=== PATIENT | male | born 1940 | race Caucasian/White ===

== ENCOUNTER 2023-12-19 21:16 | Inpatient (IN) | payer MEDICARE, OTHER, SELFPAY ==
--- NOTE | 2023-12-19 17:15 | HPS.HSE ---
Family Physician
-
Family Physician: Ernesto Infante
Chief Complaint
-
Abdominal, Parastomal Hernia
History of Present Illness
Patient is an 83 y/o male past medical history of ESRD on HD, diabetes mellitus, a-fib on anticoagulation, right hydronephrosis with right percutaneous nephrostomy and ulcerative colitis s/p colectomy with ileostomy who presents with abdominal pain.
Patient presented to an outside hospital with abdominal pain and was diagnosed with a small bowel obstruction. Concern was raised for possible symptomatic peristomal hernia. Patient is known to Dr. Maravilla and thus was transferred to [facility] for continued care. Patient reports mild abdominal pain at the present time. Prior to transfer he was given 4oz of orange juice for hypoglycemia that resulted in vomiting. He reports only small amount of green liquid from his ileostomy
bag today.
Medical History
Past Medical History
Past Medical History: Reports Other
Additional Past Medical History:
ESRD on HD
Diabetes Mellitus, Type II
Paroxysmal Atrial Fibrillation
Essential Hypertension
Orthostatic Hypotension
Right Hydronephrosis s/p Right Percutaneous Nephrostomy
Ulcerative Colitis s/p Colectomy with Ileostomy
Parastomal Hernia
BPH
Gout
Past Surgical History: Reports Other
Additional Past Surgical History:
Colectomy with Ileostomy
Right Percutaneous Nephrostomy
Right Inguinal Hernia Repair
Tonsillectomy
Social History
Tobacco: Former Smoker (Quit in 1984)
Family History
Family History: Not pertinent
Allergies / Home Medications
Allergies reflects when Allergies were last updated in [employer].
Home Medications with original date entered in [employer]
Allergy/Medication List:
Allergies
Allergy/AdvReac Type Severity Reaction Status Date / Time
vancomycin Allergy Hives Verified 12/19/23 16:34
Home Medications
acetaminophen 500 mg tablet 1,000 mg PO Q6H PRN mild pain/fever 12/19/23
allopurinol 100 mg tablet 100 mg PO BID 12/19/23
amiodarone 200 mg tablet 200 mg PO DAILY 12/19/23
apixaban 2.5 mg tablet (Eliquis) 2.5 mg PO BID 12/19/23
atorvastatin 40 mg tablet 40 mg PO HS 12/19/23
cholecalciferol (vitamin D3) 50 mcg (2,000 unit) capsule (Vitamin D3) 50 mcg PO DAILY 12/19/23
clindamycin HCl 150 mg capsule 150 mg PO BID 12/19/23
coenzyme Q10 100 mg capsule 100 mg PO DAILY 12/19/23
insulin aspart U-100 100 unit/mL (3 mL) subcutaneous pen 14 unit SC 12/19/23
insulin aspart U-100 100 unit/mL (3 mL) subcutaneous pen 18 unit SC 12/19/23
insulin degludec 100 unit/mL (3 mL) subcutaneous pen (Tresiba FlexTouch U-100 insulin) 36 unit SC 12/19/23
losartan 25 mg tablet 25 mg PO DAILY 12/19/23
metoprolol tartrate 50 mg tablet 50 mg PO TID 12/19/23
midodrine 10 mg tablet 20 mg PO TID 12/19/23
sucroferric oxyhydroxide 500 mg chewable tablet (Velphoro) 1,000 mg PO BID 12/19/23
tamsulosin 0.4 mg capsule 0.4 mg PO HS 12/19/23
tramadol 50 mg tablet 50 mg PO Q6H PRN moderate/severe 12/19/23
trazodone 50 mg tablet 50 mg PO HS 12/19/23
Review of Systems
-
A 12 point ROS was completed and negative except as noted: Yes
Constitutional: Denies Fever or Chills
Respiratory: Denies Cough or Trouble Breathing
Cardiac: Denies Chest Pain or Palpitations
Abdomen/GI: Reports See HPI
Physical Exam
Vital Signs
Temp 99.3F
Pulse 69
BP 114/58
Resp Rate 22
Pulse Ox 94%
Physical Exam
General: Comfortable and Conversant
HEENT: Anicteric and Moist mucous membranes
Respiratory: Clear and Non Labored Respirations
Cardiac: S1/S2 and Regular Rhythm
GI: Soft, Tender (Mild on the right without rebound or gurading) and Ostomy (RLQ Ileostomy)
Genito-urinary: Other (Right Percutaneous Nephrostomy with very cloudy urine present in bag)
Musculoskeletal: No Clubbing, No Cyanosis, Edema, Right Upper Extremity and Other (Left UE AV Fistula with dressing in place following HD today)
Skin: Warm and Dry
Neuro: Awake, Alert, Oriented and Nonfocal/grossly intact
Laboratory Results
-
Labs from December 19, 2023 in AM prior to HD today
WBC 12.7
Hgb 11.8
Hct 36.4
Plt 241
Na 129
K 6.2
Cl 90
CO2 09
BUN 45
Cr 9.97
Glu 87
Data Reviewed
-
CT Scan: Report Reviewed by me
Lab Data: Labs Reviewed by me
Old Records: Reviewed
Impression/Plan
-
Small Bowel Obstruction, possible symptomatic peristomal hernia
-Consult General Surgery
-Continue NPO/IVFs
-Check Abd/Pelvis CT scan
Right Hydronephrosis s/p Right Percutaneous Nephrostomy
-Questionable urinary tract infection
-Started on Zosyn at outside side - Will continue for now
ESRD on HD
-Consult Nephrology
-Monitor Is&Os and Daily Weights
Hyperphosphatemia
-Check phosphorus level
-Continue phosphate binder
Diabetes Mellitus, Type II
-Decrease Lantus 10 units HS
-Monitor sugars and continue coverage insulin
Paroxysmal Atrial Fibrillation
-Eliquis on hold should patient require surgical intervention
-Continue amiodarone and metoprolol
Essential Hypertension
-Hold losartan due to hyperkalemia
-Continue metoprolol
Orthostatic Hypotension
-Currently on high dose midodrine - Will attempt to decrease dose with stopped losartan
-Add THOMAS stockings
BPH
-Continue Flomax
DVT proph: SCDs
Code Status: Full Code
[2023-12-19 20:40] VITALS: BP 114/58; BMI 35.8
--- NOTE | 2023-12-19 20:40 | PTCARENOTE ---
Pt arrive to [facility] as a direct admit at 2039. Pt was on a stretcher and walked to the bed. Pt has a Right flank nephrostomy and a right ileostomy. Pt has a LUE fistula for HD. Pt AA&Ox3. Pt not c/o pain at this time. Bed locked and in lowest
position. Pt oriented to room and call boone. Care ongoing.
[2023-12-19 21:38] LABS: Glucose - Point of Care 94 mg/dl (70-99)
[2023-12-19] MEDS: NSS 1000 IV (21:40)
--- NOTE | 2023-12-19 22:10 | W.PN.UPDATE ---
Update Note
Progress Note Update
Patient seen in conjunction with SHIP PROPELLER FINISHER. I agree with findings on history and physical. I concur with the assessment and plan unless stated otherwise.
This is a 83-year-old male with past medical history of end-stage renal disease on hemodialysis Tuesday currently via a left upper extremity AV fistula/graft, history of bowel resection status post ileostomy/colostomy, history of
nephrolithiasis currently with a right nephrostomy tube, hypertension, insulin-dependent diabetes, paroxysmal atrial fibrillation on anticoagulation and amiodarone, orthostatic presenting to the emergency department at outside hospital with
abdominal pain and nausea and found to have suspected small bowel obstruction and a mina-stomal hernia.
He reports sudden onset of episode with nausea and some prior who he is but no particular vomiting unless he is attempting p.o. intake. He denied any fevers or chills. Patient is followed by urology and is status post nephrostomy tube for a
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 He still makes urine. He says he was started on antibiotics likely clindamycin p.o. twice daily by his urology for purulent drainage from the nephrostomy tube a few weeks ago. He has continued on the antibiotics
until admitted at the hospital. Patient was started on Zosyn while admitted at the outside hospital.
Patient reports that he usually has dialysis Tuesday and recently at [facility] left upper extremity AV graft/fistula which was successfully used on his last dialysis prior to transfer here.
Patient has been seen by Dr. Maravilla and was transferred to from outside hospital for continuation of care and surgical evaluation.
On arrival here the patient had a temp of 99.3, blood pressure was 114/60 with a pulse of 69. Within saturation was 95% on room air. I reviewed the initial labs on arrival here and it showed nothing acute. Patient apparently had dialysis Tuesday
prior to transfer.
A&P
1. Small bowel obstruction - CT w/IV contrast here shows small bowel obstruction at the level of the right-sided ileostomy, associated with a peristomal hernia. Patient is not vomiting and denies abdominal pain
- admit to telemetry
- npo with meds being held
- no ngt for now
- pain control and antiemetic
- monitor vitals, will hold iv fluids for now given HD patient
- hold anticoagulants
2. UTI - Pyonephritis, + u/a and h/o purulent drainage from right nephrostomy on outpatient abx per urology.
- continuing zosyn 2.25 q 8 hd dosing for now
- f/u urine culture and blood culture from outside hospital
- consider id consult prior to d/c depending on culture findings
3. pAFIB - currently well controlled
- holding AC
- rate control with metoprolol iv for now
- holding amio
4. DM II on basal bolus at home
- insuling sliding scale q6
- low dose lantus 10 hs, hold if npo
5. HTN - patient on losartan and high dose midodrine
- holding losartan
- hold midodrine and monitor, check orthostatics
6. ESRD - HD M/W/F last HD on tuesday, no indicatin for acute HD
- nephrology consult
- npo for now
DVT PPX - SCDs
Code Status - Full Code
[2023-12-19] MEDS: LANTUS 0.1 UNITS SC (23:05)
[2023-12-19 23:15] VITALS: BMI 35.8
[2023-12-19 23:34] VITALS: BP 138/64
[2023-12-20] VITALS (15 sets, daily range): BP systolic 88–130; BP diastolic 45–90; BMI 35.3
[2023-12-20] MEDS: ZOSYN 50 IV ×2 (00:09→13:07)
[2023-12-20] MEDS: LOPRESSOR 5 MG IV ×2 (00:10→12:26)
[2023-12-20 00:15] LABS: Glucose - Point of Care 94 mg/dl (70-99)
--- NOTE | 2023-12-20 05:24 | PTCARENOTE ---
Pt vomited small amount of bright green emesis. Pt reports feeling better after vomiting. PHOSPHATIC FERTILIZER SUPERVISOR notified. Will continue to monitor.
[2023-12-20] MEDS: LOPRESSOR IV ×2 (05:41→17:58)
[2023-12-20 05:44] LABS: Glucose - Point of Care 92 mg/dl (70-99)
[2023-12-20 07:05] LABS: INR 1.29; PT 15.9 Sec (11.4-14.6)
--- NOTE | 2023-12-20 07:09 | CON.GS ---
Consultation
-
Performing Provider: Renita
Reason for Consultation: Parastomal hernia with small bowel obstruction
Medical History
-
Chief Complaint: Abdominal pain, nausea vomiting
History of Present Illness:
Patient is an 83-year-old male known to myself after previous outpatient evaluation in May 2023 for a known parastomal hernia. He has undergone a diagnostic laparoscopy converted to laparotomy, subtotal colectomy with creation of permanent end
ileostomy at [facility] on 04/05/2023 for fulminant/severe ulcerative colitis. He has had progressive swelling on the right side of the abdominal wall adjacent to his end ileostomy. It has been increasing in size and there is
some associated prolapse. His ostomy is functioning regularly without any symptoms suggestive of intermittent obstruction so therefore we had elected to manage his ostomy conservatively with outpatient surgical surveillance.
Patient reports that over the past few months it has continued to progressively enlarged in size. He was still managing it well without significant pain or discomfort until this past Tuesday when after eating dinner he developed the acute onset of
abdominal pain followed by nausea vomiting and decreased ostomy output. He had not experienced this at any time in the past with his ostomy. This prompted evaluation of hospitalization at [facility] and he has been transferred here
for our surgical evaluation as patient is previously known to myself.
Reports continues with intermittent nausea but reports minimal abdominal pain. Ostomy with scant liquid output.
Past Medical History
Past Medical History: Other (GERD, ESRD on HD, BMI 35, BPH, insulin-dependent diabetes mellitus, MGUS, P A-fib, orthostatic hypotension, hyperlipidemia, history of bladder stones, history of ulcerative colitis)
Past Surgical History: Other (Right inguinal hernia repair, percutaneous nephrostomy tube, pilonidal cyst, total abdominal colectomy with end ileostomy)
Social History
Tobacco: Former Smoker
Alcohol: None
Personal:
Living: With Family
Employment: Employed
Family History
Family History: Reviewed & Not Pertinent
Allergies / Home Medications
Allergy/AdvReac Type Severity Reaction Status Date / Time
vancomycin Allergy Hives Verified 12/19/23 16:34
�Medication �Instructions �Recorded �Confirmed �Type
acetaminophen 500 mg tablet 1,000 mg PO Q6H PRN mild pain/fever 12/19/23 12/19/23 History
allopurinol 100 mg tablet 100 mg PO BID 12/19/23 12/19/23 History
amiodarone 200 mg tablet 200 mg PO DAILY 12/19/23 12/19/23 History
apixaban 2.5 mg tablet (Eliquis) 2.5 mg PO BID 12/19/23 12/19/23 History
atorvastatin 40 mg tablet 40 mg PO HS 12/19/23 12/19/23 History
cholecalciferol (vitamin D3) 50 50 mcg PO DAILY 12/19/23 12/19/23 History
mcg (2,000 unit) capsule (Vitamin
D3)
clindamycin HCl 150 mg capsule 150 mg PO BID 12/19/23 12/19/23 History
coenzyme Q10 100 mg capsule 100 mg PO DAILY 12/19/23 12/19/23 History
insulin aspart U-100 100 unit/mL 14 unit SC 12/19/23 12/19/23 History
(3 mL) subcutaneous pen
insulin aspart U-100 100 unit/mL 18 unit SC 12/19/23 12/19/23 History
(3 mL) subcutaneous pen
insulin degludec 100 unit/mL (3 36 unit SC 12/19/23 12/19/23 History
mL) subcutaneous pen (Tresiba
FlexTouch U-100 insulin)
losartan 25 mg tablet 25 mg PO DAILY 12/19/23 12/19/23 History
metoprolol tartrate 50 mg tablet 50 mg PO TID 12/19/23 12/19/23 History
midodrine 10 mg tablet 20 mg PO TID 12/19/23 12/19/23 History
sucroferric oxyhydroxide 500 mg 1,000 mg PO BID 12/19/23 12/19/23 History
chewable tablet (Velphoro)
tamsulosin 0.4 mg capsule 0.4 mg PO HS 12/19/23 12/19/23 History
tramadol 50 mg tablet 50 mg PO Q6H PRN moderate/severe 12/19/23 12/19/23 History
trazodone 50 mg tablet 50 mg PO HS 12/19/23 12/19/23 History
Review of Systems
-
History Source: Patient
All other systems: Negative unless noted
A 10 point review of systems was completed, and was negative except as per HPI.
Physical Exam
Vital Signs
Temp Pulse Resp BP Pulse Ox
99.0 F 67 22 99/52 92
12/20/23 03:19 12/20/23 05:41 12/20/23 03:19 12/20/23 05:41 12/20/23 03:19
12/19/23 12/20/23 12/21/23
06:59 06:59 06:59
Actual Weight 108.272 kg
Body Mass Index (BMI) 35.3
Physical Exam
General: Well Developed, Well Nourished, No Apparent Distress and Comfortable
HEENT: Moist Mucous Membranes
Respiratory: Non Labored Respirations
GI: Soft, Tender (Minimal tenderness on the a parastomal hernia site. No rebound, no rigidity, no guarding), Distended and Other (Right-sided end ileostomy with prolapse. Parastomal hernia bit firm. Incarcerated. No overlying skin changes.
Mucosa pink)
Neuro: AO x 3
Psych: Calm
Data Reviewed
-
CT Scan: Image Personally Visualized and interpreted, Report Reviewed by me, Discussed with Physician, Discussed with Nurse and Discussed with Patient
Assessment / Plan
-
Assessment/Plan: 83-year-old male with chronically incarcerated parastomal hernia presenting with an acute resultant high-grade small bowel obstruction. Transition point at the neck of the parastomal hernia. No radiographic nor clinical signs of
bowel compromise.
Discussed with patient indications for operative correction. Obstructive symptoms persist despite nonoperative management for the last 72 hours at outside hospital prior to transfer.
Open repair parastomal hernia with possible mesh, possible bowel resection was reviewed in detail with patient including anticipation of reciting at least a mucocutaneous junction of his end ileostomy.
We discussed the operative procedure in detail including potential operative findings and their management, anticipated incision location, alternative treatment options, benefits and risk such as but not limited to bleeding requiring transfusion,
infectious and wound related complications, iatrogenic injury to surrounding viscera, and postoperative recovery. Particularly discussed specifics regarding his increased medical risk for surgery which include his age, diabetes, end-stage renal
disease on dialysis. Utilizing [employer] ACS risk calculator specifically discussed 30-day estimated mortality risk of 2.9%, serious complication 10.8%, any complication 3.2%, cardiac complication 3.9%. Discussed the potential need for postoperative
ICU care pending procedure as well and probable/possible lengthy postoperative recovery.
Any of the patient's concerns or questions were fully addressed.
Awaiting a.m. labs. Patient will be added onto the OR schedule timing to be determined either today or tomorrow.
[2023-12-20 07:18] LABS: % Basophils 0.4 % (0-2); % Eosinophils 0.8 % (0-6); % Immature Granulocytes 0.5 % (0-0.5); % Lymphocytes 9.7 % (20.5-51.1); % Monocytes 13.2 % (1.7-9.3); % Neutrophils 75.4 % (42.2-75.2); Absolute Eosinophils 0.1 10^3/uL (0-0.7); Absolute Immature Granulocytes 0.1 10^3/uL (0-0.05); Absolute Lymphocytes 1.1 10^3/uL (1.2-3.4); Absolute Monocytes 1.5 10^3/uL (0.1-0.6); Absolute Neutrophils 8.3 10^3/uL (1.4-6.5); Hematocrit 33.2 % (39.0-52.0); Mean Corp Hgb Conc. 33.1 g/dL (33.0-37.0); Mean Corpuscular Hgb 33.5 pg (27.0-31.0); Mean Corpuscular Volume 101.2 fL (80.0-94.0); Mean Platelet Volume 9.7 fL (7.4-10.4); Nucleated Red Blood Cells % 0 % (-); Platelet Count 224 10^3/uL (130-400); Red Blood Cell Count 3.28 10^6/uL (4.70-6.10); Red Cell Dist. Width 14.6 % (11.5-14.5); White Blood Cell Count 11.1 10^3/uL (4.8-10.8)
[2023-12-20 07:58] LABS: ALT (SGPT) 11 U/L (0-50); AST (SGOT) 28 U/L (17-59); Albumin 3.7 g/dl (3.5-5.0); Alkaline Phosphatase 73 U/L (38-126); Amylase 66 U/L (30-110); Blood Urea Nitrogen 28 mg/dl (9-20); Calcium 8.5 mg/dl (8.4-10.2); Carbon Dioxide 28 mmol/L (22-30); Chloride 96 mmol/L (98-107); Estimated Creatinine Clearance 10 ml/min; Glucose 57 mg/dl (70-99); Lipase 37 U/L (23-300); Phosphorus 6.6 mg/dl (2.5-4.5); Potassium 5.6 mmol/L (3.5-5.1); Sodium 139 mmol/L (135-145); Total Bilirubin 0.5 mg/dl (0.2-1.3); Total Protein 6.9 g/dl (6.3-8.2)
[2023-12-20 08:41] LABS: Glycohemoglobin (HgbA1c) 5.9 % (4.0-5.6)
[2023-12-20] MEDS: PROTONIX IV 40 MG IV (09:18)
[2023-12-20] MEDS: NSS (PRESERVATIVE FREE) 10 ML IV (09:18)
--- NOTE | 2023-12-20 10:31 | CM ---
Patient seen at bedside.
IA completed
DX: Parastomal hernia with small bowel obstruction
Hx: ESRD on HD (M-W-) at [facility] in [place], GERD, BPH, IDDM, afib, permanent ileostomy (self care)
Patient lives at home in [place], [place] in a 2 story home with his . 1 step to enter, flight of steps to second floor
PLOF: Independent without assistive device, drives
Denies any DME
Denies any housing/transportation/food/utilities insecurities
Patient to be added to OR schedule today or tomorrow
PCP: Ernesto Infante
Pharmacy: [facility]
[address] [place], [place] [address]
[place] [address]
[phone]
PLAN: OR today or tomorrow, CM to watch for needs
--- NOTE | 2023-12-20 10:57 | W.CON.NEPH ---
Consultation
-
Date/Time Consultation Requested: 12/20/2023 8 AM
Date/Time Consultation Performed: 12/20/2023 10 AM
Requesting Provider: Dr. Forrest
Performing Provider: Dr. Boone
Reason for Consultation: ESRD
Medical History
-
Chief Complaint: Abdominal pain
History of Present Illness:
This is an 83-year-old gentleman who has end-stage renal disease on hemodialysis for the last year and a half who says that his kidney failure occurred because of obstructive uropathy from uric acid kidney stones. He ultimately had a right
nephrostomy placed as well though he still makes more urine through the urethra. He has had no issues with dialysis and dialyzes out at [facility]. He is on a Tuesday schedule and has had no issues. Since Tuesday of
last week he has lost his appetite and has not been eating. He developed some nausea. His ostomy output also decreased as he had no intake. He says that when he went to dialysis he was actually below his dry weight. He had therefore come to the
emergency room for evaluation was found to have small bowel obstruction. We are asked to assist with management of his ESRD. He has paroxysmal atrial fibrillation which is controlled with amiodarone therapy and anticoagulate with Eliquis. He has
diabetes and is controlled with insulin therapy. He has hyperlipidemia on statin therapy stable.
Past Medical History
ESRD, diabetes mellitus type 2, atrial fibrillation, obstructive uropathy, right percutaneous nephrostomy, ulcerative colitis, colectomy, ileostomy, right inguinal hernia repair, tonsillectomy, left AV graft uric acid nephrolithiasis
Social History
Tobacco: Non-Smoker
Alcohol: None
Family History
Family History: Not Pertinent
Allergies / Home Medications
Allergy/AdvReac Type Severity Reaction Status Date / Time
vancomycin Allergy Hives Verified 12/19/23 16:34
�Medication �Instructions �Recorded �Confirmed �Type
acetaminophen 500 mg tablet 1,000 mg PO Q6H PRN mild pain/fever 12/19/23 12/19/23 History
allopurinol 100 mg tablet 100 mg PO BID Gout 12/19/23 12/19/23 History
amiodarone 200 mg tablet 200 mg PO DAILY AFIB 12/19/23 12/19/23 History
apixaban 2.5 mg tablet (Eliquis) 2.5 mg PO BID Blood Clot 12/19/23 12/19/23 History
Prevention/Tx
atorvastatin 40 mg tablet 40 mg PO HS High Cholesterol 12/19/23 12/19/23 History
cholecalciferol (vitamin D3) 50 50 mcg PO DAILY Supplement 12/19/23 12/19/23 History
mcg (2,000 unit) capsule (Vitamin
D3)
clindamycin HCl 150 mg capsule 150 mg PO BID Infection 12/19/23 12/19/23 History
coenzyme Q10 100 mg capsule 100 mg PO DAILY Supplement 12/19/23 12/19/23 History
insulin aspart U-100 100 unit/mL 14 unit SC AC Diabetes 12/19/23 12/19/23 History
(3 mL) subcutaneous pen
insulin aspart U-100 100 unit/mL 18 unit SC AC Diabetes 12/19/23 12/19/23 History
(3 mL) subcutaneous pen
insulin degludec 100 unit/mL (3 36 unit SC HS Diabetes 12/19/23 12/19/23 History
mL) subcutaneous pen (Tresiba
FlexTouch U-100 insulin)
losartan 25 mg tablet 25 mg PO DAILY Blood Pressure 12/19/23 12/19/23 History
metoprolol tartrate 50 mg tablet 50 mg PO TID Blood Pressure 12/19/23 12/19/23 History
midodrine 10 mg tablet 20 mg PO TID Blood Pressure 12/19/23 12/19/23 History
sucroferric oxyhydroxide 500 mg 1,000 mg PO BID Supplement 12/19/23 12/19/23 History
chewable tablet (Velphoro)
tamsulosin 0.4 mg capsule 0.4 mg PO HS Urinary Issue 12/19/23 12/19/23 History
tramadol 50 mg tablet 50 mg PO Q6H PRN moderate/severe 12/19/23 12/19/23 History
trazodone 50 mg tablet 50 mg PO HS Mental Health/Anxiety 12/19/23 12/19/23 History
Review of Systems
-
Mild abdominal discomfort decreased appetite
All other systems: Negative unless noted
Physical Exam
Vital Signs
Vital Signs
Temp Pulse Resp BP Pulse Ox
98.6 F 70 19 126/52 93
12/20/23 07:10 12/20/23 07:10 12/20/23 07:10 12/20/23 07:10 12/20/23 07:10
Lab Results
WBC 11.1 10^3/uL (4.8-10.8) H 12/20/23 04:48
RBC 3.28 10^6/uL (4.70-6.10) L 12/20/23 04:48
Hgb 11.0 g/dL (13.0-18.0) L 12/20/23 04:48
Hct 33.2 % (39.0-52.0) L 12/20/23 04:48
Plt Count 224 10^3/uL (130-400) 12/20/23 04:48
Sodium 139 mmol/L (135-145) 12/20/23 04:48
Potassium 5.6 mmol/L (3.5-5.1) H 12/20/23 04:48
Chloride 96 mmol/L (98-107) L 12/20/23 04:48
Carbon Dioxide 28 mmol/L (22-30) 12/20/23 04:48
BUN 28 mg/dl (9-20) H 12/20/23 04:48
Creatinine 6.9 mg/dL (0.7-1.3) H* 12/20/23 04:48
eGFR 7.40 12/20/23 04:48
Glucose 57 mg/dl (70-99) L 12/20/23 04:48
Calcium 8.5 mg/dl (8.4-10.2) 12/20/23 04:48
Phosphorus 6.6 mg/dl (2.5-4.5) H 12/20/23 04:48
Albumin 3.7 g/dl (3.5-5.0) 12/20/23 04:48
Laboratory Tests
12/20/23
04:48
[address] abdomen pelvis on 12/19/2023
IMPRESSION: As described, CT findings compatible with small bowel obstruction at the level of the right-sided ileostomy, associated with a peristomal hernia.
No evidence for free intraperitoneal air.
There is some transudation of fluid within the right upper quadrant, with edema within the adjacent mesentery.
Heterogeneously enhancing mass arising from the posteromedial upper right kidney, which is highly suspicious for renal cell carcinoma. If not previously evaluated, further evaluation with dedicated CT of the abdomen without and with contrast is
recommended.
Diffuse trabeculation of the urinary bladder is multiple diverticula.
Rounded area of enhancement within the right side of the prostate. Although nonspecific, focal prostate enhancement does have an association with prostate carcinoma.
Bony degenerative changes.
Physical Exam
Patient is awake alert oriented and in no distress. Mood and affect were pleasant, insight and judgment were good. Pupils are equal round and reactive to light, extraocular movements are intact, sclera were anicteric. Hearing was normal, ears and
nose are intact. Oropharynx was clear. Neck was supple with trachea midline and no thyromegaly. Heart was regular rate and rhythm without rubs. Lower extremities without edema. Lungs were clear to auscultation bilaterally and with normal
excursion. Abdomen was soft, nontender, with decreased bowel sounds, and no hepatosplenomegaly. Skin was without rash and with normal turgor. Left AV graft with good thrill and bruit
Data Reviewed
-
CT Scan: Report Reviewed by me
Medical Tests (Nuc Med, Echo etc): Image Personally Visualized and interpreted (EKG on 12/20/2023 by my reading shows sinus rhythm with nonspecific ST abnormality)
Labs: Labs Reviewed by me
Assessment/Plan
-
Assessment
ESRD
Obstructive uropathy, right nephrostomy
Ulcerative colitis, ileostomy
Diabetes mellitus type 2
Paroxysmal atrial fibrillation
small bowel obstruction
Plan
He is stable from a renal perspective. We will arrange for dialysis tomorrow
Potassium may be treated medically
Plan currently is for OR this afternoon
--- NOTE | 2023-12-20 11:26 | W.PN.HOSP.TC ---
Today's Communication/Plan
-
see A/P
Assessment / Plan
Assessment / Plan
HPI: 83 y/o male past medical history of ESRD on HD, diabetes mellitus, a-fib on anticoagulation, right hydronephrosis with right percutaneous nephrostomy, ulcerative colitis s/p colectomy with ileostomy; p/w abdominal pain. Patient presented to an
outside hospital with abdominal pain and was diagnosed with a small bowel obstruction. Concern was raised for possible symptomatic peristomal hernia. Patient is known to Dr. Maravilla and thus was transferred to [facility] for continued
care. Patient reported mild abdominal pain. Prior to transfer he was given 4oz of orange juice for hypoglycemia that resulted in vomiting. He reports only small amount of green liquid from his ileostomy bag on DOA.
CT AP:
CT findings compatible with small bowel obstruction at the level of the right-sided ileostomy, associated with a peristomal hernia.
No evidence for free intraperitoneal air.
There is some transudation of fluid within the right upper quadrant, with edema within the adjacent mesentery.
Heterogeneously enhancing mass arising from the posteromedial upper right kidney, which is highly suspicious for renal cell carcinoma. If not previously evaluated, further evaluation with dedicated CT of the abdomen without and with contrast is
recommended.
Diffuse trabeculation of the urinary bladder is multiple diverticula.
Rounded area of enhancement within the right side of the prostate. Although nonspecific, focal prostate enhancement does have an association with prostate carcinoma.
Bony degenerative changes.
A/P:
# Small Bowel Obstruction, possible symptomatic peristomal hernia
General Surgery on board, plan for operative Mx, timing TBD based on OR availability
Continue NPO/IVFs
Pt is medically stable for intermediate-high risk procedure
# Right Hydronephrosis s/p Right Percutaneous Nephrostomy
Questionable urinary tract infection
Pt was started with Zosyn at outside hospital, continue for now
Of note, CT AP noted right kidney mass suspicious for renal cell carcinoma
# ESRD on HD
Consult Nephrology
Monitor Is&Os and Daily Weights
# Hyperphosphatemia
Continue phosphate binder
level to be corrected with HD
# Diabetes Mellitus, Type II
Further decrease Lantus to 5 units HS (IT ADMINISTRATIVE ASSISTANT 36 units HS)
Monitor sugars and continue coverage insulin
# Paroxysmal Atrial Fibrillation
Eliquis on hold for surgical intervention
Continue amiodarone and metoprolol
# Essential Hypertension
Hold losartan due to hyperkalemia
Continue metoprolol
# Orthostatic Hypotension
IT ADMINISTRATIVE ASSISTANT midodrine on hold
Added THOMAS stockings
# BPH
Continue Flomax
DVT proph: SCD, HSQ while off IT ADMINISTRATIVE ASSISTANT Eliquis
Code Status: Full Code
Anticipated Discharge: > 48 hours
Subjective/Interval History
-
Date of Service: December 20, 2023
Objective Data
-
Labs:
Laboratory Results
12/20/23 12/20/23
04:47 04:48
WBC 11.1 H
Hgb 11.0 L
Hct 33.2 L
Plt Count 224
PT 15.9 H
INR 1.29
Sodium 139
Potassium 5.6 H
Chloride 96 L
Carbon Dioxide 28
BUN 28 H
Creatinine 6.9 H*
Glucose 57 L
Calcium 8.5
Total Bilirubin 0.5
AST 28
ALT 11
Alkaline Phosphatase 73
Vital Signs:
Vital Signs
Temp Pulse Resp BP Pulse Ox
36.8 C 68 19 129/54 93
12/20/23 11:21 12/20/23 11:21 12/20/23 11:21 12/20/23 11:21 12/20/23 11:21
[2023-12-20 11:50] LABS: Glucose - Point of Care 74 mg/dl (70-99)
[2023-12-20 12:11] LABS: Glucose - Point of Care 69 mg/dl (70-99)
[2023-12-20] MEDS: DEXTROSE 50% SYRINGE 25 GRAMS IV (12:15)
[2023-12-20] MEDS: NSS 1000 IV (12:15)
[2023-12-20 12:35] LABS: Glucose - Point of Care 179 mg/dl (70-99)
[2023-12-20] MEDS: NOVOLIN R 0.1 UNITS IV (12:37)
[2023-12-20 14:30] LABS: Glucose - Point of Care 77 mg/dl (70-99)
--- NOTE | 2023-12-20 15:25 | PTCARENOTE ---
Pt instructed on what to expect pre and post operatively. Pt verbalized understanding of instructions. Pt transported to Pre op area by Transport team.
--- NOTE | 2023-12-20 15:46 | W.SUR.PREOP ---
Pre-Operative Surgical Note
-
I have examined this patient prior to the performance of the scheduled procedure.
The patient's condition is unchanged from the time of the current History and
Physical and the patient is able to undergo the scheduled procedure.
[2023-12-20 16:23] LABS: Glucose - Point of Care 67 mg/dl (70-99)
--- NOTE | 2023-12-20 17:31 | W.IMMPOSTOP ---
Addendum entered and electronically signed by Liam Maravilla MD 12/20/23 17:54:
#[id number]
hold therapeutic AC for 72hrs post op
NPO NGT and bowel rest include avoiding PO meds until signs of GI recovery
Zosyn - for 72hrs post op d/t closure of contaminated surgical site (ileostomy site)
Original Note:
Surgical Immed Post Op Note
-
Primary Surgeon: Renita
Assisting Surgeon: Darren CROFT
Pre-op Diagnosis: Incarcerated parastomal hernia with obstruction
Post-op Diagnosis: Incarcerated parastomal hernia with obstruction
Procedure Performed: Open repair of parastomal hernia
Anesthesia Type: GETA
Specimen / Cultures: end ileostomy
Estimated Blood Loss:20mL
Complications: none immediate
Operative Findings: incarcerated parastomal hernia with SB; no strangulation no strictures. fascial defect small. fascial edges freshened and posterior/anterior sheath to facilitate healing. ileum sutured to fascia. partial closure of
fascial defect with couple interrupted 0 PDS stitches. end ileostomy kept through same fascial defect but matured at new skin site a few cms superior to prior location
[2023-12-20 17:52] LABS: Glucose - Point of Care 106 mg/dl (70-99)
[2023-12-20] MEDS: DILAUDID 0.25 MG IV ×3 (18:17→19:00)
--- NOTE | 2023-12-20 20:00 | PTCARENOTE ---
[facility] arrive [facility] PACU at 1940. Pt c/o pain in lower abdomen. Full head to toe complete. Pt came back from the OR with an incision on the low transverse abdomen that has gauze and tape over it. Dressing is CDI. Bed locked and in lowest
position. Pt oriented to room and call boone. Care ongoing.
[2023-12-20] MEDS: HEPARIN 5000 UNITS SC (20:32)
[2023-12-20] MEDS: DILAUDID 1 MG IV (21:31)
[2023-12-20 21:57] LABS: Glucose - Point of Care 75 mg/dl (70-99)
[2023-12-21] VITALS (7 sets, daily range): BP systolic 103–120; BP diastolic 51–63; PULSE 92; O2SAT 93; BMI 35.9
--- NOTE | 2023-12-21 00:05 | PTCARENOTE ---
Pt pulled NGT out in his sleep. NGT put back in by RN. Called xray for portable chest xray to verify placement.
[2023-12-21 00:28] LABS: Glucose - Point of Care 80 mg/dl (70-99)
[2023-12-21] MEDS: LOPRESSOR 5 MG IV ×3 (00:28→23:30)
[2023-12-21] MEDS: ZOSYN 50 IV ×3 (00:28→23:27)
[2023-12-21 06:14] LABS: Glucose - Point of Care 93 mg/dl (70-99)
[2023-12-21] MEDS: LOPRESSOR IV ×2 (06:17→12:53)
[2023-12-21 06:28] LABS: Hematocrit 34.2 % (39.0-52.0); Hemoglobin 11.3 g/dL (13.0-18.0); Mean Corpuscular Hgb 33.9 pg (27.0-31.0); Mean Corpuscular Volume 102.7 fL (80.0-94.0); Mean Platelet Volume 9.9 fL (7.4-10.4); Platelet Count 229 10^3/uL (130-400); Red Blood Cell Count 3.33 10^6/uL (4.70-6.10); Red Cell Dist. Width 14.5 % (11.5-14.5); White Blood Cell Count 12.1 10^3/uL (4.8-10.8)
[2023-12-21 07:02] LABS: Blood Urea Nitrogen 34 mg/dl (9-20); Calcium 7.9 mg/dl (8.4-10.2); Carbon Dioxide 23 mmol/L (22-30); Chloride 98 mmol/L (98-107); Estimated Creatinine Clearance 8 ml/min; Glucose 70 mg/dl (70-99); Magnesium 1.9 mg/dl (1.6-2.3); Phosphorus 6.5 mg/dl (2.5-4.5); Potassium 5.3 mmol/L (3.5-5.1); Sodium 141 mmol/L (135-145); eGFR 5.31
--- NOTE | 2023-12-21 07:06 | W.PN.GS2 ---
Today's Communication / Plan
-
`
Assessment / Plan
-
Assessment: 83 y/o male POD#1 s/p open repair incarcerated parastomal hernia with resultant SBO
AFVSS
overall doing well first night post op
ostomy looks well, pink, with expected edema
Plan: pain control with prn dilaudid and add ofirmev as narcotic alternative option
defer IVs to hospitalist/nephrology service as is on HD for ESRD
NPO including meds
NGT decompression as expect modest delay in post op GI recovery from procedure
PPI IV for GIp while NGT in place
Zosyn for #1/5 days post op as contaminated incision (ileostomy completely mobilized and placed in new skin location) was closed to allow for ostomy appliance placement
consult PT/OOBTC and okay to ambulate with NGT clamped
heparin for VTEp - hold therapeutic AC for 72 hrs post op
Subjective Data
-
Date of Service: December 21, 2023
pt seen and examined
post op pain controlled, only painful with occasional coughing
no nausea
NGT inadvertently removed but able to be replaced overnight
offers no additional concerns
Objective Data
-
Intake and Output
12/20/23 12/21/23 12/22/23
06:59 06:59 06:59
Intake Total 1215 / 1215
Output Total 225 / 225
Balance 990 / 990
Intake:
Oral fluids 90 / 90
IV fluids (Total) 1010 / 1010
Normosal 350 / 350
IV piggybacks 5 / 5
Amount instilled into Urinary 20 / 20
Drain (Total)
Right Nephrostomy 20 / 20
Amount instilled into GI Tube ( 90 / 90
Total)
[place] Sump 90 / 90
Output:
Urinary Drain Output (Total)
Right Nephrostomy
Gastrointestinal tube output ( 200 / 200
Total)
[place] Sump 200 / 200
Vital Signs
Temp Pulse Resp BP Pulse Ox
97.9 F 80 16 96/57 97
12/21/23 02:46 12/21/23 06:17 12/21/23 02:46 12/21/23 06:17 12/21/23 02:46
Lab Results
12/21/23 04:52
12/21/23 04:52
Calcium 7.9 mg/dl (8.4-10.2) L 12/21/23 04:52
Phosphorus 6.5 mg/dl (2.5-4.5) H 12/21/23 04:52
Magnesium 1.9 mg/dl (1.6-2.3) 12/21/23 04:52
Total Bilirubin 0.5 mg/dl (0.2-1.3) 12/20/23 04:48
AST 28 U/L (17-59) 12/20/23 04:48
ALT 11 U/L (0-50) 12/20/23 04:48
Alkaline Phosphatase 73 U/L (38-126) 12/20/23 04:48
Total Protein 6.9 g/dl (6.3-8.2) 12/20/23 04:48
Albumin 3.7 g/dl (3.5-5.0) 12/20/23 04:48
Physical Exam
-
NAD AAOx3
resting comfortably in hospital bed
ABD: softly distended, + tympany
new ileostomy pink and edematous mucosal. no air or succus in appliance
[2023-12-21] MEDS: FLEXBUMIN 25% FOR HEMODIALYSIS 12.5 GRAMS IV ×2 (08:40→10:50)
[2023-12-21] MEDS: MANNITOL 25% 12.5 GRAMS IV ×2 (08:53→11:00)
[2023-12-21 09:28] LABS: Glucose - Point of Care 102 mg/dl (70-99)
--- NOTE | 2023-12-21 10:22 | W.PN.NEPH.HD ---
Assessment
-
pt seen during HD
vitals stable
UF as tolerates
on gentle IVF per primary for BPO and on NGT suction
follow daily wts
AVF functions fine with 2 17g needle , move to 16g next time
Progress Note - Hemodialysis
-
Date of Service: December 21, 2023
Duration: 4 hours
Potassium Bath: 2
Calcium Bath: 2.5
Opti-Dialyzer: 160
Ultrafiltration: Other
Blood Flow: 250
Dialysate Flow: 600
Heparin: no
EPO: no
[2023-12-21] MEDS: NSS 1000 IV (11:39)
--- NOTE | 2023-12-21 11:50 | W.PN.HOSP.TC ---
Addendum entered and electronically signed by Tyra Hoffman MD 12/21/23 12:09:
Holding CUSTODIAL SERVICES MANAGER Lantus with current NPO status
Monitor BG with ISS
Original Note:
Today's Communication/Plan
-
see A/P
Assessment / Plan
Assessment / Plan
HPI: 83 y/o male past medical history of ESRD on HD, diabetes mellitus, a-fib on anticoagulation, right hydronephrosis with right percutaneous nephrostomy, ulcerative colitis s/p colectomy with ileostomy; p/w abdominal pain. Patient presented to an
outside hospital with abdominal pain and was diagnosed with a small bowel obstruction. Concern was raised for possible symptomatic peristomal hernia. Patient is known to Dr. Maravilla and thus was transferred to [facility] for continued
care. Patient reported mild abdominal pain. Prior to transfer he was given 4oz of orange juice for hypoglycemia that resulted in vomiting. He reports only small amount of green liquid from his ileostomy bag on DOA.
CT AP:
CT findings compatible with small bowel obstruction at the level of the right-sided ileostomy, associated with a peristomal hernia.
No evidence for free intraperitoneal air.
There is some transudation of fluid within the right upper quadrant, with edema within the adjacent mesentery.
Heterogeneously enhancing mass arising from the posteromedial upper right kidney, which is highly suspicious for renal cell carcinoma. If not previously evaluated, further evaluation with dedicated CT of the abdomen without and with contrast is
recommended.
Diffuse trabeculation of the urinary bladder is multiple diverticula.
Rounded area of enhancement within the right side of the prostate. Although nonspecific, focal prostate enhancement does have an association with prostate carcinoma.
Bony degenerative changes.
A/P:
# Small Bowel Obstruction, possible symptomatic peristomal hernia
General Surgery on board,
s/p open repair of incarcerated parastomal hernia 12/19
Cont NPO with NGT, bowel rest include avoiding PO meds until signs of GI recovery
Zosyn for 5 days post op
HSQ for DVT ppx, hold therapeutic AC for 72 hrs post op
IV PPI for GI protection
PT OT and OOB
# Right Hydronephrosis s/p Right Percutaneous Nephrostomy
Questionable urinary tract infection
Pt was started with Zosyn at outside hospital, continue for now
Of note, CT AP noted right kidney mass suspicious for renal cell carcinoma
# ESRD on HD
Consult Nephrology
Monitor Is&Os and Daily Weights
# Hyperphosphatemia
Continue phosphate binder
level to be corrected with HD
# Diabetes Mellitus, Type II
Further decrease Lantus to 5 units HS (CUSTODIAL SERVICES MANAGER 36 units HS)
Monitor sugars and continue coverage insulin
# Paroxysmal Atrial Fibrillation
Eliquis on hold for surgical intervention
Continue amiodarone and metoprolol
# Essential Hypertension
Hold losartan due to hyperkalemia
IV metoprolol while NPO , resume PO when able
# Orthostatic Hypotension
CUSTODIAL SERVICES MANAGER midodrine on hold
Added THOMAS stockings
# BPH
CUSTODIAL SERVICES MANAGER Flomax
DVT proph: HSQ while off CUSTODIAL SERVICES MANAGER Eliquis
Code Status: Full Code
Dispo: PT OT eval
Anticipated Discharge: > 48 hours
Subjective/Interval History
-
Date of Service: December 21, 2023
Objective Data
-
Labs:
Laboratory Results
12/21/23
04:52
WBC 12.1 H
Hgb 11.3 L
Hct 34.2 L
Plt Count 229
Sodium 141
Potassium 5.3 H
Chloride 98
Carbon Dioxide 23
BUN 34 H
Creatinine 9.1 H*
Glucose 70
Calcium 7.9 L
Vital Signs:
Vital Signs
Temp Pulse Resp BP Pulse Ox
37.2 C 80 16 120/53 93
12/21/23 07:15 12/21/23 07:15 12/21/23 07:15 12/21/23 07:15 12/21/23 07:15
I&O
12/20/23 12/21/23 12/22/23
06:59 06:59 06:59
Intake Total 1215 / 1215
Output Total 225 / 225
Balance 990 / 990
Review of Systems
-
All other systems: Reviewed and negative
Physical Exam
-
General: Well Developed, Well Nourished, No Apparent Distress, Comfortable and Conversant; Negative Respiratory Distress
HEENT: Normocephalic, Atraumatic, Nose Appears Normal and Ears Appear Normal; Negative Oxygen
Respiratory: Clear to Auscultation and Non Labored Respirations; Negative Accessory Resp Muscle Use
Cardiac: Regular Rhythm and S1/S2
GI: Soft, Nontender, Ostomy and Other (NGT)
Skin: Warm and Dry
Neuro: Awake and Alert
Psych: Calm and Intact Judgement/Insight
Data Reviewed
-
CT Scan: Report Reviewed by me
Labs: Labs Reviewed by me
[2023-12-21 12:42] LABS: Glucose - Point of Care 81 mg/dl (70-99)
--- NOTE | 2023-12-21 13:04 | CM ---
POD # 1- repair of parastomal incarceration
NPO, NGT, bowel rest
IV antibiotics
HD today
PT/OT eval pending
Plan - TBD - CM will follow for needs
[2023-12-21] MEDS: PROTONIX IV 40 MG IV (13:16)
[2023-12-21] MEDS: NSS (PRESERVATIVE FREE) 10 ML IV (13:17)
[2023-12-21] MEDS: HEPARIN 5000 UNITS SC ×2 (13:18→20:57)
[2023-12-21 17:44] LABS: Glucose - Point of Care 89 mg/dl (70-99)
[2023-12-21 21:35] LABS: Glucose - Point of Care 111 mg/dl (70-99)
[2023-12-21] MEDS: NSS IV (23:39)
[2023-12-22] VITALS (9 sets, daily range): BP systolic 90–109; BP diastolic 59–75; PULSE 116; BMI 35.7
[2023-12-22 00:08] LABS: Glucose - Point of Care 111 mg/dl (70-99)
[2023-12-22] MEDS: LOPRESSOR 5 MG IV ×3 (05:25→23:11)
--- NOTE | 2023-12-22 05:39 | PTCARENOTE ---
Pt refused to get OOB this evening. Stated his dialysis took a long time and that he feels very tired. Assessment ongoing.
[2023-12-22] MEDS: NSS 1000 IV ×2 (06:01→23:17)
[2023-12-22 06:09] LABS: Glucose - Point of Care 119 mg/dl (70-99)
[2023-12-22 06:11] LABS: Hematocrit 32.9 % (39.0-52.0); Hemoglobin 10.8 g/dL (13.0-18.0); Mean Corp Hgb Conc. 32.8 g/dL (33.0-37.0); Mean Corpuscular Hgb 34.2 pg (27.0-31.0); Mean Corpuscular Volume 104.1 fL (80.0-94.0); Mean Platelet Volume 9.8 fL (7.4-10.4); Platelet Count 196 10^3/uL (130-400); Red Blood Cell Count 3.16 10^6/uL (4.70-6.10); Red Cell Dist. Width 14.5 % (11.5-14.5); White Blood Cell Count 8.6 10^3/uL (4.8-10.8)
[2023-12-22 06:47] LABS: Blood Urea Nitrogen 23 mg/dl (9-20); Calcium 8.4 mg/dl (8.4-10.2); Carbon Dioxide 24 mmol/L (22-30); Chloride 98 mmol/L (98-107); Estimated Creatinine Clearance 10 ml/min; Glucose 104 mg/dl (70-99); Magnesium 1.9 mg/dl (1.6-2.3); Phosphorus 5.7 mg/dl (2.5-4.5); Potassium 4.5 mmol/L (3.5-5.1); Sodium 138 mmol/L (135-145); eGFR 7.67
--- NOTE | 2023-12-22 08:21 | W.PN.GS2 ---
Addendum entered and electronically signed by Liam Maravilla MD 12/22/23 08:45:
pt seen and examine with LAUNDRY ROUTE DRIVER, agree with documented progress note.
doing well with initial post op recovery.
ostomy beginning to decompress
AFVSS
ABD: softly distended, mild TTP, no RRG
old ostomy site dressing changed - localized erythema which was present from skin excoriation stable
A/P: maintain NGT, bowel rest until more robust GI recovery
continue Zosyn for coverage of contaminated surgical site day 2 of probable 5 day post op coverage
hold therapeutic AC until 12/24/23
Original Note:
Today's Communication / Plan
-
Local wound care
NPO/NGT
Assessment / Plan
-
Assessment: 83 y/o male POD#2 s/p open repair incarcerated parastomal hernia with resultant SBO
AFVSS
Local wound care. Some jamie removed today, packing wound at old ostomy site. Skin erythema at site of prior appliance.
New ostomy looks well. Productive of small loose stool, not much flatus as of yet
Plan: pain control with prn dilaudid and add ofirmev as narcotic alternative option
defer IVs to hospitalist/nephrology service as is on HD for ESRD
NPO including meds. Ok for ice chips for comfort
NGT decompression as expect modest delay in post op GI recovery from procedure
PPI IV for GIp while NGT in place
Zosyn for #2/5 days post op as contaminated incision (ileostomy completely mobilized and placed in new skin location) was closed to allow for ostomy appliance placement
PT/OOBTC and okay to ambulate with NGT clamped
heparin for VTEp - hold therapeutic AC for 72 hrs post op
Subjective Data
-
Date of Service: December 22, 2023
Patient seen and evaluated at bedside with Dr. Pellini. Denies n/v. Doesn't note flatus yet via stoma. Pain well managed. Voided earlier today. NGT clamped with pressure, sensation to cought up mucous.
Objective Data
-
Intake and Output
12/21/23 12/22/23 12/23/23
06:59 06:59 06:59
Intake Total 1215 / 1215 800 / 800
Output Total 225 / 225 620 / 620
Balance 990 / 990 180 / 180
Intake:
Oral fluids 90 / 90
IV fluids (Total) 1010 / 1010 660 / 660
Normosal 350 / 350
IV piggybacks 5 / 50 / 50
Amount instilled into Urinary 20 / 20
Drain (Total)
Right Nephrostomy 20 / 20
Amount instilled into GI Tube ( 90 / 90 /
Total)
[place] Sump 90 / 90 90 / 90
Output:
Liquid stool amount 100 / 100
Ileostomy 100 / 100
Urinary Drain Output (Total)
Right Nephrostomy
Gastrointestinal tube output ( 200 / 200 360 / 360
Total)
[place] Sump 200 / 200 360 / 360
Urine, Voided 150 / 150
Vital Signs
Temp Pulse Resp BP Pulse Ox
98.5 F 121 18 114/74 94
12/22/23 03:27 12/22/23 05:25 12/22/23 03:27 12/22/23 05:25 12/22/23 03:27
Lab Results
12/22/23 04:49
12/22/23 04:49
Calcium 8.4 mg/dl (8.4-10.2) 12/22/23 04:49
Phosphorus 5.7 mg/dl (2.5-4.5) H 12/22/23 04:49
Magnesium 1.9 mg/dl (1.6-2.3) 12/22/23 04:49
Total Bilirubin 0.5 mg/dl (0.2-1.3) 12/20/23 04:48
AST 28 U/L (17-59) 12/20/23 04:48
ALT 11 U/L (0-50) 12/20/23 04:48
Alkaline Phosphatase 73 U/L (38-126) 12/20/23 04:48
Total Protein 6.9 g/dl (6.3-8.2) 12/20/23 04:48
Albumin 3.7 g/dl (3.5-5.0) 12/20/23 04:48
Physical Exam
-
NAD AAOx3
ABD: softly distended,
new ileostomy pink and edematous mucosal. minimal brown stool in appliance
incision with erythema at old ostomy appliance site: some jamie removed and wound packed. Bloody, nonpurulent drainage.
[2023-12-22] MEDS: HEPARIN 5000 UNITS SC ×2 (09:07→20:58)
[2023-12-22] MEDS: NSS (PRESERVATIVE FREE) 10 ML IV (09:09)
[2023-12-22] MEDS: PROTONIX IV 40 MG IV (09:09)
--- NOTE | 2023-12-22 10:16 | CM ---
Patient seen at bedside. Patient complaining of need for urinal and stated he is unsure of next steps awaiting for physician. CM will return to continue to follow for discharge planning needs.
Plan; home with HD watch IV needs and possible need for VN
--- NOTE | 2023-12-22 10:43 | W.PN.HOSP.TC ---
Today's Communication/Plan
-
see A/P
Assessment / Plan
Assessment / Plan
HPI: 83 y/o male past medical history of ESRD on HD, diabetes mellitus, a-fib on anticoagulation, right hydronephrosis with right percutaneous nephrostomy, ulcerative colitis s/p colectomy with ileostomy; p/w abdominal pain. Patient presented to an
outside hospital with abdominal pain and was diagnosed with a small bowel obstruction. Concern was raised for possible symptomatic peristomal hernia. Patient is known to Dr. Maravilla and thus was transferred to [facility] for continued
care. Patient reported mild abdominal pain. Prior to transfer he was given 4oz of orange juice for hypoglycemia that resulted in vomiting. He reports only small amount of green liquid from his ileostomy bag on DOA.
CT AP:
CT findings compatible with small bowel obstruction at the level of the right-sided ileostomy, associated with a peristomal hernia.
No evidence for free intraperitoneal air.
There is some transudation of fluid within the right upper quadrant, with edema within the adjacent mesentery.
Heterogeneously enhancing mass arising from the posteromedial upper right kidney, which is highly suspicious for renal cell carcinoma. If not previously evaluated, further evaluation with dedicated CT of the abdomen without and with contrast is
recommended.
Diffuse trabeculation of the urinary bladder is multiple diverticula.
Rounded area of enhancement within the right side of the prostate. Although nonspecific, focal prostate enhancement does have an association with prostate carcinoma.
Bony degenerative changes.
A/P:
# Small Bowel Obstruction, possible symptomatic peristomal hernia
General Surgery on board,
s/p open repair of incarcerated parastomal hernia 12/19
Cont NPO with NGT, bowel rest include avoiding PO meds until signs of GI recovery
Zosyn for 5 days post op
HSQ for DVT ppx, hold therapeutic AC for 72 hrs post op
IV PPI for GI protection
PT OT and OOB
# Right Hydronephrosis s/p Right Percutaneous Nephrostomy
Questionable urinary tract infection
Pt was started with Zosyn at outside hospital, continue for now
Of note, CT AP noted right kidney mass suspicious for renal cell carcinoma. Pt aware and has already been following urologist
# ESRD on HD
Consult Nephrology
Monitor Is&Os and Daily Weights
# Hyperphosphatemia
Continue phosphate binder
level to be corrected with HD
# Diabetes Mellitus, Type II
Further decrease Lantus to 5 units HS (FELLER BUNCHER OPERATOR 36 units HS)
Monitor sugars and continue coverage insulin
# Paroxysmal Atrial Fibrillation
Eliquis on hold for surgical intervention
Continue amiodarone and metoprolol
# Essential Hypertension
Hold losartan due to hyperkalemia
IV metoprolol while NPO , resume PO when able
# Orthostatic Hypotension
FELLER BUNCHER OPERATOR midodrine on hold
Added THOMAS stockings
# BPH
FELLER BUNCHER OPERATOR Flomax
DVT proph: HSQ while off FELLER BUNCHER OPERATOR Eliquis
Code Status: Full Code
Dispo: PT OT eval: dispo TBD
Anticipated Discharge: > 48 hours
Subjective/Interval History
-
Date of Service: December 22, 2023
Objective Data
-
Labs:
Laboratory Results
12/22/23
04:49
WBC 8.6
Hgb 10.8 L
Hct 32.9 L
Plt Count 196
Sodium 138
Potassium 4.5
Chloride 98
Carbon Dioxide 24
BUN 23 H
Creatinine 6.7 H*
Glucose 104 H
Calcium 8.4
Vital Signs:
Vital Signs
Temp Pulse Resp BP Pulse Ox
37.1 C 117 16 99/69 94
12/22/23 07:35 12/22/23 07:35 12/22/23 07:35 12/22/23 07:35 12/22/23 10:00
I&O
1012/22/23 12/23/23
06:59 06:59 06:59
Intake Total 1215 / 1215 800 / 800
Output Total 225 / 225 620 / 620
Balance 990 / 990 180 / 180
Review of Systems
-
All other systems: Reviewed and negative
Physical Exam
-
General: Well Developed, Well Nourished, No Apparent Distress, Comfortable and Conversant; Negative Respiratory Distress
HEENT: Normocephalic, Atraumatic, Nose Appears Normal and Ears Appear Normal; Negative Oxygen
Respiratory: Clear to Auscultation and Non Labored Respirations; Negative Accessory Resp Muscle Use
Cardiac: Regular Rhythm and S1/S2
GI: Soft, Nontender, Ostomy and Other (NGT)
Skin: Warm and Dry
Neuro: Awake and Alert
Psych: Calm and Intact Judgement/Insight
Data Reviewed
-
CT Scan: Report Reviewed by me
Labs: Labs Reviewed by me
[2023-12-22 12:12] LABS: Glucose - Point of Care 127 mg/dl (70-99)
--- NOTE | 2023-12-22 12:51 | W.PN.NEPH.PH ---
Today's Communication / Plan
-
HD tomorrow
Assessment/Plan
-
Assessment:
Small Bowel Obstruction, possible symptomatic peristomal hernia
s/p open repair of incarcerated parastomal hernia 12/19
Right Hydronephrosis s/p Right Percutaneous Nephrostomy- right kidney mass suspicious for renal cell carcinoma. follows urologist
ESRD on HD
Hyperphosphatemia
Diabetes Mellitus, Type II
Paroxysmal Atrial Fibrillation
Essential Hypertension
Orthostatic Hypotension
BPH
Plan
remains NPO , ok to cont gentle IVF
labs acceptable
HD tomorrow
BP stable , off midodrine on IV BB
-
-
Date of Service: December 22, 2023
CC / HPI / ROS
-
Chief Complaint:
ESRD
History of Present Illness:
tolerated HD yesterday
BP stable on IVF
hb stable 10.8
k 4.5
Review of Systems:
no cp or sob
abd sore from surg
no other complaints
Labs
-
Labs:
WBC 8.6 10^3/uL (4.8-10.8) 12/22/23 04:49
RBC 3.16 10^6/uL (4.70-6.10) L 12/22/23 04:49
Hgb 10.8 g/dL (13.0-18.0) L 12/22/23 04:49
Hct 32.9 % (39.0-52.0) L 12/22/23 04:49
Plt Count 196 10^3/uL (130-400) 12/22/23 04:49
Sodium 138 mmol/L (135-145) 12/22/23 04:49
Potassium 4.5 mmol/L (3.5-5.1) 12/22/23 04:49
Chloride 98 mmol/L (98-107) 12/22/23 04:49
Carbon Dioxide 24 mmol/L (22-30) 12/22/23 04:49
BUN 23 mg/dl (9-20) H 12/22/23 04:49
Creatinine 6.7 mg/dL (0.7-1.3) H* 12/22/23 04:49
eGFR 7.67 12/22/23 04:49
Glucose 104 mg/dl (70-99) H 12/22/23 04:49
Calcium 8.4 mg/dl (8.4-10.2) 12/22/23 04:49
Phosphorus 5.7 mg/dl (2.5-4.5) H 12/22/23 04:49
Albumin 3.7 g/dl (3.5-5.0) 12/20/23 04:48
Physical Exam
-
Vital Signs:
Vital Signs
Temp Pulse Resp BP Pulse Ox
98.2 F 117 16 109/73 94
12/22/23 11:50 12/22/23 11:50 12/22/23 11:50 12/22/23 11:50 12/22/23 11:50
Cardiovascular:: Regular rate and rhythm
Respiratory:: Bilateral: CTA
Lung Excursion:: Normal
Abdomen:: Distended, Nontender and Soft
Extremity Edema:: None: Bilateral:
Shaw Catheter: No
[2023-12-22] MEDS: ZOSYN 50 IV ×2 (12:52→23:10)
[2023-12-22] MEDS: LOPRESSOR IV (12:56)
[2023-12-22] MEDS: OFIRMEV 100 IV (17:00)
[2023-12-22 17:34] LABS: Glucose - Point of Care 110 mg/dl (70-99)
[2023-12-23 00:36] LABS: Glucose - Point of Care 112 mg/dl (70-99)
[2023-12-23 05:42] LABS: Glucose - Point of Care 120 mg/dl (70-99)
[2023-12-23] MEDS: LOPRESSOR 5 MG IV ×3 (05:44→23:23)
[2023-12-23 07:57] VITALS: BP 115/75
[2023-12-23 08:17] LABS: Hematocrit 31.6 % (39.0-52.0); Hemoglobin 10.6 g/dL (13.0-18.0); Mean Corp Hgb Conc. 33.5 g/dL (33.0-37.0); Mean Corpuscular Hgb 33.7 pg (27.0-31.0); Mean Corpuscular Volume 100.3 fL (80.0-94.0); Mean Platelet Volume 9.2 fL (7.4-10.4); Platelet Count 217 10^3/uL (130-400); Red Blood Cell Count 3.15 10^6/uL (4.70-6.10); Red Cell Dist. Width 14.6 % (11.5-14.5); White Blood Cell Count 8.6 10^3/uL (4.8-10.8)
[2023-12-23 08:36] LABS: Blood Urea Nitrogen 33 mg/dl (9-20); Calcium 8.5 mg/dl (8.4-10.2); Carbon Dioxide 20 mmol/L (22-30); Chloride 101 mmol/L (98-107); Estimated Creatinine Clearance 8 ml/min; Glucose 108 mg/dl (70-99); Magnesium 1.9 mg/dl (1.6-2.3); Phosphorus 6.1 mg/dl (2.5-4.5); Potassium 4.5 mmol/L (3.5-5.1); Sodium 139 mmol/L (135-145); eGFR 5.53
[2023-12-23] MEDS: NSS (PRESERVATIVE FREE) 10 ML IV (08:53)
[2023-12-23] MEDS: PROTONIX IV 40 MG IV (08:53)
[2023-12-23] MEDS: HEPARIN 5000 UNITS SC ×2 (08:54→20:09)
[2023-12-23] MEDS: RETACRIT 2000 UNITS IV (09:19)
--- NOTE | 2023-12-23 10:31 | W.PN.GS2 ---
Addendum entered and electronically signed by Juan Grullon MD 12/23/23 10:55:
I saw and examined the patient.
The Biometrics Specialist's note was reviewed and I agree with the note.
Comment: Pain controlled, feels well. Exam approp. Brown stool in bag. Plan for NGT clamp trial.
Original Note:
Today's Communication / Plan
-
NGT clamp trial
Assessment / Plan
-
Assessment: 83 y/o male POD#3 s/p open repair incarcerated parastomal hernia with resultant SBO
AFVSS
Local wound care
New ostomy looks well. Productive of small loose stool, not much flatus as of yet
Plan: NGT clamp trial today, clear liquids this afternoon if successful
pain control with prn dilaudid and ofirmev as narcotic alternative option
defer IVs to hospitalist/nephrology service as is on HD for ESRD
PPI IV for GIp while NGT in place
Zosyn day #3/5 days post op as contaminated incision (ileostomy completely mobilized and placed in new skin location) was closed to allow for ostomy appliance placement
PT/OOBTC and okay to ambulate
heparin for VTEp -
anticipate being able to resume eliquis and othe PO meds tomorrow if continues to progress/bowel function returning
Subjective Data
-
Date of Service: December 23, 2023
Patient seen and examined at bedside with Dr. Grullon. Denies n/v. Minimal abdominal discomfort. On HD at time of exam.
Objective Data
-
Intake and Output
12/22/23 12/23/23 12/24/23
06:59 06:59 06:59
Intake Total 800 / 800 445 / 445
Output Total 620 / 620 890 / 890
Balance 180 / 180 -445 / -445
Intake:
Oral fluids 180 / 180
IV fluids (Total) 660 / 660 120 / 120
IV piggybacks 50 / 50 55 / 55
Amount instilled into GI Tube (
Total)
[place] S[place]
Output:
Liquid stool amount 100 / 100 100 / 100
Ileostomy 100 / 100 100 / 100
Urinary Drain Output (Total)
Right Nephrostomy
Gastrointestinal tube output ( 360 / 360 700 / 700
Total)
[place] 360 / 360 700 / 700
Urine, Voided 150 / 150
Vital Signs
Temp Pulse Resp BP Pulse Ox
97.9 F 123 19 115/75 97
12/23/23 07:57 12/23/23 07:57 12/23/23 07:57 12/23/23 07:57 12/23/23 07:57
Lab Results
12/23/23 07:37
12/23/23 07:37
Calcium 8.5 mg/dl (8.4-10.2) 12/23/23 07:37
Phosphorus 6.1 mg/dl (2.5-4.5) H 12/23/23 07:37
Magnesium 1.9 mg/dl (1.6-2.3) 12/23/23 07:37
Total Bilirubin 0.5 mg/dl (0.2-1.3) 12/20/23 04:48
AST 28 U/L (17-59) 12/20/23 04:48
ALT 11 U/L (0-50) 12/20/23 04:48
Alkaline Phosphatase 73 U/L (38-126) 12/20/23 04:48
Total Protein 6.9 g/dl (6.3-8.2) 12/20/23 04:48
Albumin 3.7 g/dl (3.5-5.0) 12/20/23 04:48
Physical Exam
-
NAD AAOx3
ABD: softly distended,
new ileostomy pink and edematous mucosal. loose brown stool in appliance, not much flatus
incisional dressing intact
--- NOTE | 2023-12-23 10:33 | W.PN.NEPH.HD ---
Assessment
-
Seen on HD. no complaints. NGT in place. VSS, access ok
Progress Note - Hemodialysis
-
Date of Service: December 23, 2023
Duration: 4 hours
Potassium Bath: 2
Calcium Bath: 2.5
Opti-Dialyzer: 160
Ultrafiltration: Other (2kg)
Blood Flow: 400
Dialysate Flow: 600
Heparin: no
EPO: 2000 units
[2023-12-23 11:28] VITALS: BP 123/61
--- NOTE | 2023-12-23 11:30 | W.PN.HOSP.TC ---
Today's Communication/Plan
-
see A/P
Assessment / Plan
Assessment / Plan
HPI: 83 y/o male past medical history of ESRD on HD, diabetes mellitus, a-fib on anticoagulation, right hydronephrosis with right percutaneous nephrostomy, ulcerative colitis s/p colectomy with ileostomy; p/w abdominal pain. Patient presented to an
outside hospital with abdominal pain and was diagnosed with a small bowel obstruction. Concern was raised for possible symptomatic peristomal hernia. Patient is known to Dr. Maravilla and thus was transferred to [facility] for continued
care. Patient reported mild abdominal pain. Prior to transfer he was given 4oz of orange juice for hypoglycemia that resulted in vomiting. He reports only small amount of green liquid from his ileostomy bag on DOA.
CT AP:
CT findings compatible with small bowel obstruction at the level of the right-sided ileostomy, associated with a peristomal hernia.
No evidence for free intraperitoneal air.
There is some transudation of fluid within the right upper quadrant, with edema within the adjacent mesentery.
Heterogeneously enhancing mass arising from the posteromedial upper right kidney, which is highly suspicious for renal cell carcinoma. If not previously evaluated, further evaluation with dedicated CT of the abdomen without and with contrast is
recommended.
Diffuse trabeculation of the urinary bladder is multiple diverticula.
Rounded area of enhancement within the right side of the prostate. Although nonspecific, focal prostate enhancement does have an association with prostate carcinoma.
Bony degenerative changes.
A/P:
# Small Bowel Obstruction, possible symptomatic peristomal hernia
General Surgery on board,
s/p open repair of incarcerated parastomal hernia 12/19
Cont NPO
NGT clamp trial today
Zosyn for 5 days post op
HSQ for DVT ppx, resume OIL AND GAS SUPERINTENDENT low dose Eliquis 12/23
IV PPI for GI protection
PT OT and OOB
# Right Hydronephrosis s/p Right Percutaneous Nephrostomy
Questionable urinary tract infection
Pt was started with Zosyn at outside hospital, continue for now
Of note, CT AP noted right kidney mass suspicious for renal cell carcinoma. Pt aware and has already been following urologist
# ESRD on HD
Consult Nephrology
Monitor Is&Os and Daily Weights
# Hyperphosphatemia
Continue phosphate binder
level to be corrected with HD
# Diabetes Mellitus, Type II
Further decrease Lantus to 5 units HS (OIL AND GAS SUPERINTENDENT 36 units HS)
Monitor sugars and continue coverage insulin
# Paroxysmal Atrial Fibrillation
Eliquis on hold for surgical intervention
Continue amiodarone and metoprolol
# Essential Hypertension
Hold losartan due to hyperkalemia
IV metoprolol while NPO , resume PO when able
# Orthostatic Hypotension
OIL AND GAS SUPERINTENDENT midodrine on hold
Added THOMAS stockings
# BPH
OIL AND GAS SUPERINTENDENT Flomax
DVT proph: HSQ while off OIL AND GAS SUPERINTENDENT Eliquis
Code Status: Full Code
Dispo: PT OT eval: dispo TBD
DW GS
Anticipated Discharge: > 48 hours
Subjective/Interval History
-
Date of Service: December 23, 2023
Objective Data
-
Labs:
Laboratory Results
12/23/23
07:37
WBC 8.6
Hgb 10.6 L
Hct 31.6 L
Plt Count 217
Sodium 139
Potassium 4.5
Chloride 101
Carbon Dioxide 20 L
BUN 33 H
Creatinine 8.8 H*
Glucose 108 H
Calcium 8.5
Vital Signs:
Vital Signs
Temp Pulse Resp BP Pulse Ox
36.6 C 121 19 123/61 96
12/23/23 11:28 12/23/23 11:28 12/23/23 11:28 12/23/23 11:28 12/23/23 11:28
I&O
12/22/23 12/23/23 12/24/23
06:59 06:59 06:59
Intake Total 800 / 800 445 / 445
Output Total 620 / 620 890 / 890
Balance 180 / 180 -445 / -445
Review of Systems
-
All other systems: Reviewed and negative
Physical Exam
-
General: Well Developed, Well Nourished, No Apparent Distress, Comfortable and Conversant; Negative Respiratory Distress
HEENT: Normocephalic, Atraumatic, Nose Appears Normal and Ears Appear Normal; Negative Oxygen
Respiratory: Clear to Auscultation and Non Labored Respirations; Negative Accessory Resp Muscle Use
Cardiac: Regular Rhythm and S1/S2
GI: Soft, Nontender, Ostomy and Other (NGT)
Skin: Warm and Dry
Neuro: Awake and Alert
Psych: Calm and Intact Judgement/Insight
Data Reviewed
-
CT Scan: Report Reviewed by me
Labs: Labs Reviewed by me
[2023-12-23 11:45] LABS: Glucose - Point of Care 87 mg/dl (70-99)
[2023-12-23] MEDS: ZOSYN 50 IV ×2 (12:41→23:41)
--- NOTE | 2023-12-23 13:19 | WOUNDNOTE ---
[facility] RN NOTE: Patient s/p open repair incarcerated parastomal hernia with ileostomy creation on 12/21. Patient alert with small amount of stool in pouch. Patient has had ostomy for 2 years and is comfortable with care. He is requesting drainage bag
with clamp and prefers [employer] products. With patients approval a [employer] Secure Start Kit was sent to home with the supplies he prefers. Patient said he will need a script for the clamp and drainage pouches. Surgical service made aware and
stock numbers left at bedside. Ostomy supplies ordered and are at bedside. Will follow up with patient during in-patient stay.
--- NOTE | 2023-12-23 15:03 | CM ---
Addendum entered by Krystina Naqvi 12/24/23 16:05:
Spoke with pt who denies VN need. Says he has support at home.
Original Note:
Chart reviewed
NPO. NGT clamped today
Remains on IV antibiotics
PT/OT following
HD today
Plan - home with HD and poss HH when medically ready
[2023-12-23 15:24] VITALS: BP 94/67
[2023-12-23 17:56] LABS: Glucose - Point of Care 114 mg/dl (70-99)
[2023-12-23] MEDS: LOPRESSOR IV (18:09)
[2023-12-23 19:25] VITALS: BP 119/90
[2023-12-23 22:02] LABS: Glucose - Point of Care 133 mg/dl (70-99)
[2023-12-23 23:09] VITALS: BP 102/60
[2023-12-24 03:25] VITALS: BP 120/65
[2023-12-24] MEDS: LOPRESSOR 5 MG IV (05:39)
[2023-12-24 06:00] VITALS: BMI 35.5
[2023-12-24 07:04] LABS: Hemoglobin 10.9 g/dL (13.0-18.0); Mean Corpuscular Hgb 33.1 pg (27.0-31.0); Mean Corpuscular Volume 100.3 fL (80.0-94.0); Mean Platelet Volume 9.6 fL (7.4-10.4); Platelet Count 249 10^3/uL (130-400); Red Blood Cell Count 3.29 10^6/uL (4.70-6.10); Red Cell Dist. Width 14.4 % (11.5-14.5); White Blood Cell Count 8.9 10^3/uL (4.8-10.8)
[2023-12-24 07:35] VITALS: BP 116/86
[2023-12-24 07:45] LABS: Blood Urea Nitrogen 21 mg/dl (9-20); Calcium 8.6 mg/dl (8.4-10.2); Carbon Dioxide 24 mmol/L (22-30); Chloride 98 mmol/L (98-107); Estimated Creatinine Clearance 11 ml/min; Glucose 153 mg/dl (70-99); Magnesium 1.9 mg/dl (1.6-2.3); Phosphorus 4.3 mg/dl (2.5-4.5); Potassium 3.9 mmol/L (3.5-5.1); Sodium 137 mmol/L (135-145); eGFR 8.58
[2023-12-24 07:46] LABS: Glucose - Point of Care 148 mg/dl (70-99)
[2023-12-24] MEDS: NOVOLOG FLEXPEN-MODERATE RESISTANCE SC (08:06)
[2023-12-24] MEDS: ELIQUIS 2.5 MG PO ×2 (08:07→19:37)
[2023-12-24] MEDS: NSS (PRESERVATIVE FREE) 10 ML IV (08:07)
[2023-12-24] MEDS: PROTONIX IV 40 MG IV (08:07)
[2023-12-24] MEDS: FLUSH (NSS) 2 FLUSH IV ×2 (08:08→12:08)
--- NOTE | 2023-12-24 10:21 | W.PN.NEPH.PH ---
Today's Communication / Plan
-
HD tuesday
Assessment/Plan
-
Assessment:
Small Bowel Obstruction, possible symptomatic peristomal hernia
s/p open repair of incarcerated parastomal hernia 12/19
Right Hydronephrosis s/p Right Percutaneous Nephrostomy- right kidney mass suspicious for renal cell carcinoma. follows urologist
ESRD on HD
Hyperphosphatemia
Diabetes Mellitus, Type II
Paroxysmal Atrial Fibrillation
Essential Hypertension
Orthostatic Hypotension
BPH
Plan
diet per surgery
HD tuesday
-
-
Date of Service: December 24, 2023
CC / HPI / ROS
-
Chief Complaint:
ESRD
History of Present Illness:
tolerated HD yesterday
BP stable
hgb stable
tolerating liquid diet
Review of Systems:
no cp or sob
Labs
-
Labs:
WBC 8.9 10^3/uL (4.8-10.8) 12/24/23 06:00
RBC 3.29 10^6/uL (4.70-6.10) L 12/24/23 06:00
Hgb 10.9 g/dL (13.0-18.0) L 12/24/23 06:00
Hct 33.0 % (39.0-52.0) L 12/24/23 06:00
Plt Count 249 10^3/uL (130-400) 12/24/23 06:00
Sodium 137 mmol/L (135-145) 12/24/23 06:00
Potassium 3.9 mmol/L (3.5-5.1) 12/24/23 06:00
Chloride 98 mmol/L (98-107) 12/24/23 06:00
Carbon Dioxide 24 mmol/L (22-30) 12/24/23 06:00
BUN 21 mg/dl (9-20) H 12/24/23 06:00
Creatinine 6.1 mg/dL (0.7-1.3) H* 12/24/23 06:00
eGFR 8.58 12/24/23 06:00
Glucose 153 mg/dl (70-99) H 12/24/23 06:00
Calcium 8.6 mg/dl (8.4-10.2) 12/24/23 06:00
Phosphorus 4.3 mg/dl (2.5-4.5) 12/24/23 06:00
Albumin 3.7 g/dl (3.5-5.0) 12/20/23 04:48
Physical Exam
-
Vital Signs:
Vital Signs
Temp Pulse Resp BP Pulse Ox
98.5 F 134 18 116/86 97
12/24/23 07:35 12/24/23 07:35 12/24/23 07:35 12/24/23 07:35 12/24/23 07:35
Cardiovascular:: Regular rate and rhythm
Respiratory:: Bilateral: CTA
Lung Excursion:: Normal
Abdomen:: Nontender and Soft
Bowel Sounds:: Normal
Extremity Edema:: None: Bilateral:
--- NOTE | 2023-12-24 10:43 | W.PN.HOSP.TC ---
Today's Communication/Plan
-
see A/P
Assessment / Plan
Assessment / Plan
HPI: 83 y/o male past medical history of ESRD on HD, diabetes mellitus, a-fib on anticoagulation, right hydronephrosis with right percutaneous nephrostomy, ulcerative colitis s/p colectomy with ileostomy; p/w abdominal pain. Patient presented to an
outside hospital with abdominal pain and was diagnosed with a small bowel obstruction. Concern was raised for possible symptomatic peristomal hernia. Patient is known to Dr. Maravilla and thus was transferred to [facility] for continued
care. Patient reported mild abdominal pain. Prior to transfer he was given 4oz of orange juice for hypoglycemia that resulted in vomiting. He reports only small amount of green liquid from his ileostomy bag on DOA.
CT AP:
CT findings compatible with small bowel obstruction at the level of the right-sided ileostomy, associated with a peristomal hernia.
No evidence for free intraperitoneal air.
There is some transudation of fluid within the right upper quadrant, with edema within the adjacent mesentery.
Heterogeneously enhancing mass arising from the posteromedial upper right kidney, which is highly suspicious for renal cell carcinoma. If not previously evaluated, further evaluation with dedicated CT of the abdomen without and with contrast is
recommended.
Diffuse trabeculation of the urinary bladder is multiple diverticula.
Rounded area of enhancement within the right side of the prostate. Although nonspecific, focal prostate enhancement does have an association with prostate carcinoma.
Bony degenerative changes.
A/P:
# Small Bowel Obstruction, possible symptomatic peristomal hernia
General Surgery on board,
s/p open repair of incarcerated parastomal hernia 12/19
NGT removed 12/22
Started clears
Zosyn for 5 days post op
resume MOLDER OFFBEARER low dose Eliquis 12/23
IV PPI for GI protection
PT OT and OOB
# Right Hydronephrosis s/p Right Percutaneous Nephrostomy
Questionable urinary tract infection
Pt was started with Zosyn at outside hospital, continue for now
Of note, CT AP noted right kidney mass suspicious for renal cell carcinoma. Pt aware and has already been following urologist
# ESRD on HD
Consult Nephrology
Monitor Is&Os and Daily Weights
# Hyperphosphatemia
Continue phosphate binder
level to be corrected with HD
# Diabetes Mellitus, Type II
Further decrease Lantus to 5 units HS (MOLDER OFFBEARER 36 units HS)
Monitor sugars and continue coverage insulin
# Paroxysmal Atrial Fibrillation
Eliquis on hold for surgical intervention
Continue amiodarone and metoprolol
# Essential Hypertension
Hold losartan due to hyperkalemia
IV metoprolol while NPO , resume PO when able
# Orthostatic Hypotension
MOLDER OFFBEARER midodrine on hold
Added THOMAS stockings
# BPH
MOLDER OFFBEARER Flomax
DVT proph: MOLDER OFFBEARER Eliquis
Code Status: Full Code
Dispo: PT OT eval: dispo TBD
Anticipated Discharge: > 48 hours
Subjective/Interval History
-
Date of Service: December 24, 2023
Objective Data
-
Labs:
Laboratory Results
12/24/23
06:00
WBC 8.9
Hgb 10.9 L
Hct 33.0 L
Plt Count 249
Sodium 137
Potassium 3.9
Chloride 98
Carbon Dioxide 24
BUN 21 H
Creatinine 6.1 H*
Glucose 153 H
Calcium 8.6
Vital Signs:
Vital Signs
Temp Pulse Resp BP Pulse Ox
36.9 C 134 18 116/86 97
12/24/23 07:35 12/24/23 07:35 12/24/23 07:35 12/24/23 07:35 12/24/23 07:35
I&O
12/23/23 12/24/23 12/25/23
06:59 06:59 05:59
Intake Total 445 / 445 410 / 410
Output Total 890 / 890 950 / 950
Balance -445 / -445 -540 / -540
Review of Systems
-
All other systems: Reviewed and negative
Physical Exam
-
General: Well Developed, Well Nourished, No Apparent Distress, Comfortable and Conversant; Negative Respiratory Distress
HEENT: Normocephalic, Atraumatic, Nose Appears Normal and Ears Appear Normal; Negative Oxygen
Respiratory: Clear to Auscultation and Non Labored Respirations; Negative Accessory Resp Muscle Use
Cardiac: Regular Rhythm and S1/S2
GI: Soft, Nontender, Normal Bowel Sounds and Ostomy
Skin: Warm and Dry
Neuro: Awake and Alert
Psych: Calm and Intact Judgement/Insight
Data Reviewed
-
CT Scan: Report Reviewed by me
Labs: Labs Reviewed by me
[2023-12-24 11:34] VITALS: BP 109/77
[2023-12-24 11:52] LABS: Glucose - Point of Care 196 mg/dl (70-99)
[2023-12-24] MEDS: NOVOLOG FLEXPEN-MODERATE RESISTANCE 1 UNITS SC ×2 (12:07→18:29)
[2023-12-24] MEDS: ZOSYN 50 IV ×2 (12:07→23:49)
--- NOTE | 2023-12-24 13:10 | W.PN.GS2 ---
Today's Communication / Plan
-
regular diet
eliquis restarted
packing removed
Assessment / Plan
-
Assessment: 83 y/o male POD#4 s/p open repair incarcerated parastomal hernia with resultant SBO
AFVSS
Local wound care
New ostomy looks well. Productive of small loose stool, not much flatus as of yet
Plan: advance to regular diet
pain control with prn dilaudid and ofirmev as narcotic alternative option
defer IVs to hospitalist/nephrology service as is on HD for ESRD
Zosyn day #4/5 days post op as contaminated incision (ileostomy completely mobilized and placed in new skin location) was closed to allow for ostomy appliance placement
PT/OOBTC and okay to ambulate
Eliquis restarted today
Subjective Data
-
Date of Service: December 24, 2023
Patient states he has no nausea or vomiting. He denies pain. He is very hungry.
Objective Data
-
Intake and Output
12/23/23 12/24/23 12/25/23
06:59 06:59 05:59
Intake Total 445 / 445 410 / 410
Output Total 890 / 890 950 / 950
Balance -445 / -445 -540 / -540
Intake:
Oral fluids 180 / 180 360 / 360
IV fluids (Total) 120 / 120
IV piggybacks 55 / 55 50 / 50
Amount instilled into GI Tube ( 90 / 90
Total)
[place] Sump 90 / 90
Output:
Liquid stool amount 100 / 100 600 / 600
Ileostomy 100 / 100 600 / 600
Urinary Drain Output (Total) 90 / 90 50 / 50
Right Nephrostomy 90 / 90 50 / 50
Gastrointestinal tube output ( 700 / 700 125 / 125
Total)
[place] 700 / 700 125 / 125
Urine, Voided 175 / 175
Vital Signs
Temp Pulse Resp BP Pulse Ox
98.2 F 122 18 109/77 95
12/24/23 11:34 12/24/23 11:34 12/24/23 11:34 12/24/23 11:34 12/24/23 11:34
Lab Results
12/24/23 06:00
12/24/23 06:00
Calcium 8.6 mg/dl (8.4-10.2) 12/24/23 06:00
Phosphorus 4.3 mg/dl (2.5-4.5) 12/24/23 06:00
Magnesium 1.9 mg/dl (1.6-2.3) 12/24/23 06:00
Total Bilirubin 0.5 mg/dl (0.2-1.3) 12/20/23 04:48
AST 28 U/L (17-59) 12/20/23 04:48
ALT 11 U/L (0-50) 12/20/23 04:48
Alkaline Phosphatase 73 U/L (38-126) 12/20/23 04:48
Total Protein 6.9 g/dl (6.3-8.2) 12/20/23 04:48
Albumin 3.7 g/dl (3.5-5.0) 12/20/23 04:48
Physical Exam
-
NAD AAOx3
ABD: softly distended,
new ileostomy pink and edematous mucosal. loose brown stool in appliance, not much flatus
incisional dressing intact, packing removed, dressing replaced
[2023-12-24] MEDS: LOPRESSOR PO (15:15)
[2023-12-24 15:29] VITALS: BP 103/67
[2023-12-24 16:49] LABS: Glucose - Point of Care 186 mg/dl (70-99)
[2023-12-24 19:30] VITALS: BP 117/66
[2023-12-24] MEDS: LOPRESSOR 50 MG PO (22:13)
[2023-12-24 22:39] VITALS: BP 108/67
[2023-12-25 02:35] VITALS: BP 115/79
[2023-12-25 06:00] VITALS: BMI 35.8
[2023-12-25 06:34] LABS: Hematocrit 32.6 % (39.0-52.0); Hemoglobin 10.8 g/dL (13.0-18.0); Mean Corp Hgb Conc. 33.1 g/dL (33.0-37.0); Mean Corpuscular Hgb 34.4 pg (27.0-31.0); Mean Corpuscular Volume 103.8 fL (80.0-94.0); Mean Platelet Volume 9.5 fL (7.4-10.4); Platelet Count 229 10^3/uL (130-400); Red Blood Cell Count 3.14 10^6/uL (4.70-6.10); Red Cell Dist. Width 14.2 % (11.5-14.5); White Blood Cell Count 10.2 10^3/uL (4.8-10.8)
[2023-12-25 06:58] LABS: Blood Urea Nitrogen 30 mg/dl (9-20); Calcium 8.4 mg/dl (8.4-10.2); Carbon Dioxide 25 mmol/L (22-30); Chloride 98 mmol/L (98-107); Estimated Creatinine Clearance 9 ml/min; Glucose 171 mg/dl (70-99); Magnesium 1.9 mg/dl (1.6-2.3); Phosphorus 4.7 mg/dl (2.5-4.5); Potassium 4.2 mmol/L (3.5-5.1); Sodium 138 mmol/L (135-145); eGFR 6.49
[2023-12-25 07:23] VITALS: BP 112/73
[2023-12-25 08:33] LABS: Glucose - Point of Care 161 mg/dl (70-99)
[2023-12-25] MEDS: NOVOLOG FLEXPEN-MODERATE RESISTANCE SC (08:48)
[2023-12-25] MEDS: PROTONIX IV 40 MG IV (08:49)
[2023-12-25] MEDS: LOPRESSOR 50 MG PO (08:49)
[2023-12-25] MEDS: NSS (PRESERVATIVE FREE) 10 ML IV (08:49)
[2023-12-25] MEDS: ELIQUIS 2.5 MG PO (08:49)
[2023-12-25] MEDS: PACERONE 200 MG PO (08:49)
--- NOTE | 2023-12-25 09:39 | W.PN.NEPH.PH ---
Today's Communication / Plan
-
HD tomorrow
Assessment/Plan
-
Assessment:
Small Bowel Obstruction, possible symptomatic peristomal hernia
s/p open repair of incarcerated parastomal hernia 12/19
Right Hydronephrosis s/p Right Percutaneous Nephrostomy- right kidney mass suspicious for renal cell carcinoma. follows urologist
ESRD on HD
Hyperphosphatemia
Diabetes Mellitus, Type II
Paroxysmal Atrial Fibrillation
Essential Hypertension
Orthostatic Hypotension
BPH
Plan
he is hopeful to go home today
HD tuesday (ideally at OP HD unit)
-
-
Date of Service: December 25, 2023
CC / HPI / ROS
-
Chief Complaint:
ESRD
History of Present Illness:
tolerated HD tuesday
BP stable
hgb stable
tolerating diet
Review of Systems:
no cp or sob
Labs
-
Labs:
WBC 10.2 10^3/uL (4.8-10.8) 12/25/23 06:03
RBC 3.14 10^6/uL (4.70-6.10) L 12/25/23 06:03
Hgb 10.8 g/dL (13.0-18.0) L 12/25/23 06:03
Hct 32.6 % (39.0-52.0) L 12/25/23 06:03
Plt Count 229 10^3/uL (130-400) 12/25/23 06:03
Sodium 138 mmol/L (135-145) 12/25/23 06:03
Potassium 4.2 mmol/L (3.5-5.1) 12/25/23 06:03
Chloride 98 mmol/L (98-107) 12/25/23 06:03
Carbon Dioxide 25 mmol/L (22-30) 12/25/23 06:03
BUN 30 mg/dl (9-20) H 12/25/23 06:03
Creatinine 7.7 mg/dL (0.7-1.3) H* 12/25/23 06:03
eGFR 6.49 12/25/23 06:03
Glucose 171 mg/dl (70-99) H 12/25/23 06:03
Calcium 8.4 mg/dl (8.4-10.2) 12/25/23 06:03
Phosphorus 4.7 mg/dl (2.5-4.5) H 12/25/23 06:03
Albumin 3.7 g/dl (3.5-5.0) 12/20/23 04:48
Physical Exam
-
Vital Signs:
Vital Signs
Temp Pulse Resp BP Pulse Ox
98 F 126 15 112/73 95
12/25/23 07:23 12/25/23 08:49 12/25/23 07:23 12/25/23 08:49 12/25/23 07:23
Cardiovascular:: Regular rate and rhythm
Respiratory:: Bilateral: CTA
Lung Excursion:: Normal
Abdomen:: Nontender and Soft
Bowel Sounds:: Normal
Extremity Edema:: None: Bilateral:
[2023-12-25 10:55] VITALS: BP 98/67
--- NOTE | 2023-12-25 11:02 | W.PN.HOSP.TC ---
Addendum entered and electronically signed by Tyra Hoffman MD 12/25/23 12:14:
total DC time 36 min
Original Note:
Today's Communication/Plan
-
DC home with HH
Assessment / Plan
Assessment / Plan
HPI: 83 y/o male past medical history of ESRD on HD, diabetes mellitus, a-fib on anticoagulation, right hydronephrosis with right percutaneous nephrostomy, ulcerative colitis s/p colectomy with ileostomy; p/w abdominal pain. Patient presented to an
outside hospital with abdominal pain and was diagnosed with a small bowel obstruction. Concern was raised for possible symptomatic peristomal hernia. Patient is known to Dr. Maravilla and thus was transferred to [facility] for continued
care. Patient reported mild abdominal pain. Prior to transfer he was given 4oz of orange juice for hypoglycemia that resulted in vomiting. He reports only small amount of green liquid from his ileostomy bag on DOA.
CT AP:
CT findings compatible with small bowel obstruction at the level of the right-sided ileostomy, associated with a peristomal hernia.
No evidence for free intraperitoneal air.
There is some transudation of fluid within the right upper quadrant, with edema within the adjacent mesentery.
Heterogeneously enhancing mass arising from the posteromedial upper right kidney, which is highly suspicious for renal cell carcinoma. If not previously evaluated, further evaluation with dedicated CT of the abdomen without and with contrast is
recommended.
Diffuse trabeculation of the urinary bladder is multiple diverticula.
Rounded area of enhancement within the right side of the prostate. Although nonspecific, focal prostate enhancement does have an association with prostate carcinoma.
Bony degenerative changes.
A/P:
# Small Bowel Obstruction, possible symptomatic peristomal hernia
General Surgery on board,
s/p open repair of incarcerated parastomal hernia 12/19
NGT removed 12/22
Started diet and advanced to solid, pt tolerating well
s/p Zosyn for 5 days post op
resume MEDICAL MALPRACTICE PARALEGAL low dose Eliquis 12/23
IV PPI for GI protection while in the hospital
PT OT and OOB
# Right Hydronephrosis s/p Right Percutaneous Nephrostomy
Questionable urinary tract infection
Pt was started with Zosyn at outside hospital, continue for now
Of note, CT AP noted right kidney mass suspicious for renal cell carcinoma. Pt aware and has already been following urologist
# ESRD on HD
Consult Nephrology
Monitor Is&Os and Daily Weights
# Hyperphosphatemia
Continue phosphate binder
level to be corrected with HD
# Diabetes Mellitus, Type II
Further decrease Lantus to 5 units HS (MEDICAL MALPRACTICE PARALEGAL 36 units HS)
Monitor sugars and continue coverage insulin
# Paroxysmal Atrial Fibrillation
Eliquis on hold for surgical intervention
Continue amiodarone and metoprolol
# Essential Hypertension
Hold losartan due to hyperkalemia
IV metoprolol while NPO , resume PO when able
# Orthostatic Hypotension
MEDICAL MALPRACTICE PARALEGAL midodrine on hold
Added THOMAS stockings
# BPH
MEDICAL MALPRACTICE PARALEGAL Flomax
DVT proph: MEDICAL MALPRACTICE PARALEGAL Eliquis
Code Status: Full Code
Dispo: PT OT eval: dispo TBD
DW GS
Anticipated Discharge: Today
Subjective/Interval History
-
Date of Service: December 25, 2023
Objective Data
-
Labs:
Laboratory Results
12/25/23
06:03
WBC 10.2
Hgb 10.8 L
Hct 32.6 L
Plt Count 229
Sodium 138
Potassium 4.2
Chloride 98
Carbon Dioxide 25
BUN 30 H
Creatinine 7.7 H*
Glucose 171 H
Calcium 8.4
Vital Signs:
Vital Signs
Temp Pulse Resp BP Pulse Ox
36.8 C 119 14 98/67 96
12/25/23 10:55 12/25/23 10:55 12/25/23 10:55 12/25/23 10:55 12/25/23 10:55
I&O
12/24/23 12/25/23 12/26/23
07:59 06:59 06:59
Intake Total
Output Total
Balance
Review of Systems
-
All other systems: Reviewed and negative
Physical Exam
-
General: Well Developed, Well Nourished, No Apparent Distress, Comfortable and Conversant; Negative Respiratory Distress
HEENT: Normocephalic, Atraumatic, Nose Appears Normal and Ears Appear Normal; Negative Oxygen
Respiratory: Clear to Auscultation and Non Labored Respirations; Negative Accessory Resp Muscle Use
Cardiac: Regular Rhythm and S1/S2
GI: Soft, Nontender, Normal Bowel Sounds and Ostomy
Skin: Warm and Dry
Neuro: Awake and Alert
Psych: Calm and Intact Judgement/Insight
Data Reviewed
-
CT Scan: Report Reviewed by me
Labs: Labs Reviewed by me
--- NOTE | 2023-12-25 11:18 | W.PN.GS2 ---
Today's Communication / Plan
-
okay for d/c
f/u with general surgery
Assessment / Plan
-
Assessment: 83 y/o male POD#5 s/p open repair incarcerated parastomal hernia with resultant SBO
AFVSS
Local wound care
New ostomy looks well. Productive of small loose stool, not much flatus as of yet
Plan: Continue regular diet
pain control with prn dilaudid and ofirmev as narcotic alternative option
defer IVs to hospitalist/nephrology service as is on HD for ESRD
Zosyn day #5/5 days post op as contaminated incision (ileostomy completely mobilized and placed in new skin location) was closed to allow for ostomy appliance placement
PT/OOBTC and okay to ambulate
Eliquis restarted 12/23
Okay for discharge today, follow up with general surgery as an outpatient
Subjective Data
-
Date of Service: December 25, 2023
Patient states he feels well. He has no complaints. His pain is controlled. He has no nausea or vomiting.
Objective Data
-
Intake and Output
12/24/23 12/25/23 12/26/23
07:59 06:59 06:59
Intake Total
Output Total
Balance
Intake:
Oral fluids
IV piggybacks
Output:
Liquid stool amount
Ileostomy
Urinary Drain Output (Total)
Right Nephrostomy
Gastrointestinal tube output (
Total)
[place] Sump
Urine, Voided
Vital Signs
Temp Pulse Resp BP Pulse Ox
98.3 F 119 14 98/67 96
12/25/23 10:55 12/25/23 10:55 12/25/23 10:55 12/25/23 10:55 12/25/23 10:55
Lab Results
12/25/23 06:03
12/25/23 06:03
Calcium 8.4 mg/dl (8.4-10.2) 12/25/23 06:03
Phosphorus 4.7 mg/dl (2.5-4.5) H 12/25/23 06:03
Magnesium 1.9 mg/dl (1.6-2.3) 12/25/23 06:03
Total Bilirubin 0.5 mg/dl (0.2-1.3) 12/20/23 04:48
AST 28 U/L (17-59) 12/20/23 04:48
ALT 11 U/L (0-50) 12/20/23 04:48
Alkaline Phosphatase 73 U/L (38-126) 12/20/23 04:48
Total Protein 6.9 g/dl (6.3-8.2) 12/20/23 04:48
Albumin 3.7 g/dl (3.5-5.0) 12/20/23 04:48
Physical Exam
-
NAD AAOx3
ABD: softly distended,
new ileostomy pink and edematous mucosal. loose brown stool in appliance, flatus in bag
incisional dressing intact, packing out, dressing replaced
--- NOTE | 2023-12-25 11:49 | W.DCSUMMARY ---
Discharge Summary
Discharge Data
Date of Admission: 12/19/23
Date of Discharge: 12/25/23
-
Pending Results: No
Hospital Course
Principal Diagnosis:
Small Bowel Obstruction with symptomatic peristomal hernia
Chronic Diagnoses:�
ulcerative colitis s/p colectomy with ileostomy
Right Hydronephrosis s/p Right Percutaneous Nephrostomy
End-stage renal disease on hemodialysis
Insulin-dependent diabetes
Paroxysmal Atrial Fibrillation
Essential Hypertension
Orthostatic Hypotension
Benign prostate hypertrophy on Flomax
Consultations:�
General Surgery
Nephrology
Procedures:�
Open repair of incarcerated parastomal hernia on 12/19
Clinical course:�
This is a 83 year old male with past medical history as started above, who presented from outside hospital due to abdominal pain from small bowel obstruction. This is in setting of prior colectomy with ileostomy.
Patient was known to Dr. Maravilla thus was transferred to [facility].
Problem 1:
Small Bowel Obstruction with symptomatic peristomal hernia.
He underwent open repair of incarcerated parastomal hernia on 12/19.
He was briefly placed on NGT post op which was removed on 12/22.
His diet was slowly advanced and he was able to tolerate solids prior to discharge.
He received Zosyn for 5 days postop, no further antibiotic following discharge.
As for the rest of his medical problems, they were stable during his hospital stay.
Discharge Plan
-
Patient Disposition: Home with Home Care
Discharge Diagnosis/Procedures: Small bowel obstruction from parastomal hernia status post open repair
Condition: Fair
Diet: Low Fiber and Diabetic, Carb Controlled
Activity: No strenuous activity
Additional Activity: do not lift over 15lbs for the next 6-8 weeks
Bathing Restrictions: OK to Shower
Other Services: VN
Wound Care: Lightly pack gauze between the jamie of your incision then cover your incision with dry gauze dressing. Change daily and as needed for drainage.
Activity Restrictions/Additional Instructions:
Call your surgeon if you have a fever >100.5, nausea with vomiting or worsening abdominal pain
Referrals:
Ernesto Infante MD [Family Provider] - in less than 1 week
Liam Maravilla MD [Active] - in two weeks
Additional Discharge Medication Instructions: stop losartan due to hyperkalemia on admission
Prescriptions:
Continued
atorvastatin 40 mg Tablet
40 mg PO HS
amiodarone 200 mg Tablet
200 mg PO DAILY
allopurinol 100 mg Tablet
100 mg PO BID
tramadol 50 mg Tablet
50 mg PO Q6H PRN (Reason: moderate/severe)
acetaminophen 500 mg Tablet
1,000 mg PO Q6H PRN (Reason: mild pain/fever)
tamsulosin 0.4 mg Capsule
0.4 mg PO HS
metoprolol tartrate 50 mg Tablet
50 mg PO TID
midodrine 10 mg Tablet
20 mg PO TID
coenzyme Q10 100 mg Capsule
100 mg PO DAILY
insulin aspart U-100 100 unit/mL (3 mL) Insulin Pen
14 unit SC AC
Rx Instructions:
Tuesday, Tuesday, Tuesday
insulin aspart U-100 100 unit/mL (3 mL) Insulin Pen
18 unit SC AC
Rx Instructions:
Tuesday, Tuesday, , Tuesday
cholecalciferol (vitamin D3) [Vitamin D3] 50 mcg (2,000 unit) Capsule
50 mcg PO DAILY
Eliquis 2.5 mg Tablet
2.5 mg PO BID
insulin degludec [Tresiba FlexTouch U-100] 100 unit/mL (3 mL) Insulin Pen
36 unit SC HS
Velphoro 500 mg Tablet,Chewable
1,000 mg PO BID
Discontinued
trazodone 50 mg Tablet
50 mg PO HS
clindamycin HCl 150 mg Capsule
150 mg PO BID
losartan 25 mg Tablet
25 mg PO DAILY
Discharge Orders:
Discharge Patient (As Directed); Ordered 12/25/23
Ordered By: Tyra Hoffman
Discharge Date and Time
Print Language: MOSOTHO
--- NOTE | 2023-12-25 12:25 | CM ---
CM reviewed chart. DC order noted. Spoke with pt, explained role and discussed anticipated dc plan/options. Pt confirmed address in [place]. Pt is a known OP HD set up w/transportation. Pt is independent w/colostomy. assists with ADLs if needed.
Discussed DME that is not covered by Medicare-pt advised they can be purchased at any pharmacy, [facility] or from [employer]. Pt declining need for home care- plan is to f/u with PCP. Family transport at id. RN aware of the above.
Pt is clear to dc from a CM/SW standpoint.
[2023-12-25 13:17] LABS: Glucose - Point of Care 244 mg/dl (70-99)
[2023-12-25] MEDS: NOVOLOG FLEXPEN-MODERATE RESISTANCE 3 UNITS SC (13:42)
[2023-12-25 14:45] VITALS: BP 96/66
== END 2023-12-25 15:21 | disposition home or self-care (01) | DRG 353 ==
LOC: 2 SOUTH 21:16
PROVIDERS: ADMITTING PHYSICIAN Internal Medicine; ATTENDING PHYSICIAN Internal Medicine; CONSULT PHYSICIAN Specialist; CONSULT PHYSICIAN Surgery; FAMILY PHYSICIAN Internal Medicine Infectious Disease
PROC: 0WUF0JZ Supplement Abdominal Wall with Synthetic Substitute, Open Approach (ICD-10-PCS; 2023-12-20)
DX: K43.3 Parastomal hernia with obstruction, without gangrene (principal); N18.6 End stage renal disease; N13.2 Hydronephrosis with renal and ureteral calculous obstruction; I12.0 Hypertensive chronic kidney disease with stage 5 chronic kidney disease or end stage renal disease; K51.90 Ulcerative colitis, unspecified, without complications; Z87.891 Personal history of nicotine dependence; Z99.2 Dependence on renal dialysis; E11.22 Type 2 diabetes mellitus with diabetic chronic kidney disease; E83.39 Other disorders of phosphorus metabolism; I48.0 Paroxysmal atrial fibrillation; Z79.4 Long term (current) use of insulin; E87.5 Hyperkalemia; I95.1 Orthostatic hypotension; Z90.49 Acquired absence of other specified parts of digestive tract; Z93.2 Ileostomy status; N40.0 Benign prostatic hyperplasia without lower urinary tract symptoms
CPT/HCPCS: 88304; 71045; 74177; 80048; 80053; 82150; 82962; 83036; 83690; 83735; 84100; 85025; 85027; 85610; 86850; 86900; 86901; 87070; 93005; 97162; 97167; 97535; C1776; C1894; G0257; P9047; Q5106; Q9967

== ENCOUNTER 2024-06-07 03:25 | Inpatient (IN) | payer MEDICARE, OTHER, SELFPAY ==
[2024-06-06 19:16] VITALS: BMI 35.2
[2024-06-06 19:18] VITALS: BP 107/58
[2024-06-06 19:48] LABS: % Basophils 0.4 % (0-2); % Eosinophils 0.9 % (0-6); % Immature Granulocytes 0.3 % (0-0.5); % Lymphocytes 14.3 % (20.5-51.1); % Monocytes 10.4 % (1.7-9.3); % Neutrophils 73.7 % (42.2-75.2); Absolute Basophils 0.1 10^3/uL (0-0.2); Absolute Eosinophils 0.1 10^3/uL (0-0.7); Absolute Lymphocytes 1.7 10^3/uL (1.2-3.4); Absolute Monocytes 1.2 10^3/uL (0.1-0.6); Absolute Neutrophils 8.6 10^3/uL (1.4-6.5); Hematocrit 35.2 % (39.0-52.0); Mean Corp Hgb Conc. 34.1 g/dL (33.0-37.0); Mean Corpuscular Volume 99.7 fL (80.0-94.0); Mean Platelet Volume 9.5 fL (7.4-10.4); Nucleated Red Blood Cells % 0 % (-); Platelet Count 243 10^3/uL (130-400); Red Blood Cell Count 3.53 10^6/uL (4.70-6.10); Red Cell Dist. Width 13.7 % (11.5-14.5); White Blood Cell Count 11.7 10^3/uL (4.8-10.8)
[2024-06-06 19:51] LABS: Lactic Acid 3.2 mmol/L (0.7-2.0)
[2024-06-06 20:06] LABS: ALT (SGPT) 28 U/L (0-50); AST (SGOT) 25 U/L (17-59); Albumin 4.8 g/dl (3.5-5.0); Alkaline Phosphatase 97 U/L (38-126); Blood Urea Nitrogen 23 mg/dl (9-20); Calcium 9.1 mg/dl (8.4-10.2); Carbon Dioxide 30 mmol/L (22-30); Chloride 94 mmol/L (98-107); Glucose 146 mg/dl (70-99); Lipase 64 U/L (23-300); Potassium 5.3 mmol/L (3.5-5.1); Sodium 137 mmol/L (135-145); Total Bilirubin 0.7 mg/dl (0.2-1.3); Total Protein 8.5 g/dl (6.3-8.2); eGFR 10.64
[2024-06-06 21:20] VITALS: BP 127/71
--- NOTE | 2024-06-06 21:32 | ED.GENMED ---
History of Present Illness
General
Chief Complaint: Abdominal Symptoms
Source: patient
Exam Limitations: none
Time Seen by Provider: 06/06/24 21:21
Nursing documentation reviewed up to this point in time: agreed with
History of Present Illness
History of Present Illness:
Patient is an 83-year-old male with past medical history of a flutter, chronic renal failure on dialysis Tuesday, ulcerative colitis /ileostomy insulin-dependent diabetes presents to the ER for evaluation. Patient reports yesterday
morning he noticed that he had decreased drainage and almost no drainage from his ileostomy bag. The bag just started draining prior to arrival. He has been nauseous and dry heaving. He does complain of abdominal fullness/bloating. He denies any
fever or chills.
Patient had dialysis today.
Review of Systems
Review of Systems
Allergies reviewed?: Yes
Other source history: family
All Other Systems: ROS reviewed and negative except as documented in HPI and ROS
Constitutional: Reports no symptoms; Denies fever, fatigue or chills
EENT: Reports no symptoms
Respiratory: Reports no symptoms
Cardiac: Reports no symptoms
ABD/GI: Reports abdominal pain (abd bloating ), nausea, vomiting and other (Decrease stool in ostomy bag)
Skin: Reports no symptoms
Neurological: Reports no symptoms
Psychiatric: Reports no symptoms
Phy Exam
General Physical Exam
General Presentation: no apparent distress
General age: appears stated age
General Skin: warm and dry
General Habitus: normal
General Mental: alert
Cardiovascular Exam
Cardiovascular Exam: regular rate/rhythm, no murmur and normal peripheral pulses
Pulmonary Exam
Pulmonary Exam: lungs clear and no respiratory distress
Gastrointestinal Exam
Gastrointestinal Exam: soft and other (Brown soft stool in ostomy bag presently)
Neurological Exam
Neurological Exam: alert and oriented x3
Musculoskeletal Exam
Musculoskeletal Exam: full ROM
Skin Exam
Skin Exam: normal color and warm/dry
Psychiatric Exam
Psychiatric Exam: normal mood/affect
Course
Orders/Labs/Results
Orders:
Orders
06/06/24 19:31
Complete Blood Count/With Diff Urgent
Comprehensive Metabolic Panel Urgent
Lactic Acid Urgent
Lipase Urgent
06/06/24 21:32
Iohexol [Omnipaque] See Protocol PO NOW STA
06/06/24 21:33
0.9% Sodium Chloride 1000 ml [Nss] 1,000 ml IV BOLUS
Ondansetron Injectable [Zofran] 4 mg IV NOW STA
06/07/24
CT Abd/pelvis W Iv Cont Urgent
Reason For Exam: dec outpt in ostomy bag +vomiting
06/07/24 00:22
Lactic Acid Urgent
Abnormal Lab Results
06/06/24
19:31
WBC 11.7 H 10^3/uL
(4.8-10.8)
RBC 3.53 L 10^6/uL
(4.70-6.10)
Hgb 12.0 L g/dL
(13.0-18.0)
Hct 35.2 L %
(39.0-52.0)
MCV 99.7 H fL
(80.0-94.0)
MCH 34.0 H pg
(27.0-31.0)
Absolute Neuts (auto) 8.6 H 10^3/uL
(1.4-6.5)
Absolute Monos (auto) 1.2 H 10^3/uL
(0.1-0.6)
Lymphocytes % 14.3 L %
(20.5-51.1)
Monocytes % 10.4 H %
(1.7-9.3)
Potassium 5.3 H mmol/L
(3.5-5.1)
Chloride 94 L mmol/L
(98-107)
BUN 23 H mg/dl
(9-20)
Creatinine 5.1 H* mg/dL
(0.7-1.3)
Glucose 146 H mg/dl
(70-99)
Lactic Acid 3.2 H mmol/L
(0.7-2.0)
Total Protein 8.5 H g/dl
(6.3-8.2)
06/06/24 19:31
06/06/24 19:31
Vital Signs
Initial and Last Documented VS:
Initial Vital Signs
Temp Pulse Resp BP Pulse Ox
98.2 F 69 20 107/58 96
06/06/24 19:18 06/06/24 19:18 06/06/24 19:18 06/06/24 19:18 06/06/24 19:18
Last Documented Vital Signs
Temp Pulse Resp BP Pulse Ox
98.2 F 76 22 114/60 92
06/06/24 19:18 06/07/24 00:17 06/07/24 00:00 06/07/24 00:00 06/07/24 00:00
MDM/Problems Addressed
Differential Diagnosis Includes:
Not limited to bowel obstruction
MDM/Problems Addressed:
Patient is an 83-year-old male with history of ileostomy renal failure dialysis went to dialysis today however since yesterday noted decreased output from his ileostomy, he has had mild abdominal discomfort. Patient presented with complaints of
nausea has had some dry heaving and vomiting. CAT scan is concerning for an early partial bowel obstruction related to a known parastomal hernia. Patient does have history of this chronically incarcerated parastomal hernia and had open repair of
the parastomal hernia by surgery here December 20, 2023.
Here in the ER his initial lactic acid was elevated however repeat is decreased and improved.
with ct findings will need admission.
Case discussed with surgery case discussed admitting hospitalist.
*Radiology
Radiology exam reviewed: radiology read reviewed
*Pulse Oximetry
Patient hypoxic: no
*Critical Care Note
Total Time (30-74mins, 75-104mins- exclusive of procedures): Not Applicable
Data Reviewed
Review of Other/Old Records Reveals: Labs, Operative Reports and Discharge Summary
Source: patient and significant other
Patient Management
Discussion with other providers: [facility] (surgery made aware)
ED Attending Note
-
Portions of this chart may have been created with voice recognition software.� Occasional wrong word or��sound alike� substitutions may have occurred due to the inherent limitations of voice recognition software.
Discharge Plan
Departure
Patient Disposition: Admit
Date of Disposition: 06/07/24
Time of Disposition: 01:30
Admit to: Med/Surg
Admit to doctor: hospitaist
Presentation/result/management discussed w/ accepting MD/DO: Hospitalist
Patient with high blood pressure during this ER visit?: No
Covid-19: Not Applicable
Discharge Problem:
Small bowel obstruction
Prescriptions:
No Action
atorvastatin 40 mg Tablet
40 mg PO HS
amiodarone 200 mg Tablet
200 mg PO DAILY
allopurinol 100 mg Tablet
100 mg PO BID
tramadol 50 mg Tablet
50 mg PO Q6H PRN (Reason: moderate/severe)
acetaminophen 500 mg Tablet
1,000 mg PO Q6H PRN (Reason: mild pain/fever)
tamsulosin 0.4 mg Capsule
0.4 mg PO HS
metoprolol tartrate 50 mg Tablet
50 mg PO TID
midodrine 10 mg Tablet
20 mg PO TID
coenzyme Q10 100 mg Capsule
100 mg PO DAILY
insulin aspart U-100 100 unit/mL (3 mL) Insulin Pen
14 unit SC AC
Rx Instructions:
Tuesday, Tuesday, Tuesday
insulin aspart U-100 100 unit/mL (3 mL) Insulin Pen
18 unit SC AC
Rx Instructions:
Tuesday, Tuesday, , Tuesday
cholecalciferol (vitamin D3) [Vitamin D3] 50 mcg (2,000 unit) Capsule
50 mcg PO DAILY
Eliquis 2.5 mg Tablet
2.5 mg PO BID
insulin degludec [Tresiba FlexTouch U-100] 100 unit/mL (3 mL) Insulin Pen
36 unit SC HS
Velphoro 500 mg Tablet,Chewable
1,000 mg PO BID
Referrals:
Ernesto Infante MD [Family Provider] -
Interventions
Interventions:
*Risk Screen - Suicide Last Done: 06/06/24 19:22
*General Assessment Last Done: 06/06/24 19:18
HK-Epkbvr-Eubprylrfc Assessment Last Done: 06/06/24 21:29
Discharge Date and Time
Print Language: AMERICAN
[2024-06-06] MEDS: OMNIPAQUE 50 ML PO (21:41)
[2024-06-06] MEDS: NSS 1000 IV (22:22)
[2024-06-06] MEDS: ZOFRAN 4 MG IV (22:22)
[2024-06-06 23:31] VITALS: BP 130/60
[2024-06-07] VITALS: BP 114/60
[2024-06-07 00:43] LABS: Lactic Acid 1.9 mmol/L (0.7-2.0)
--- NOTE | 2024-06-07 02:16 | HPS.HSE ---
Family Physician
-
Family Physician: Ernesto Infante
Chief Complaint
-
Abdominal distention
History of Present Illness
This is 83-year-old with past medical history of end-stage renal disease on hemodialysis Tuesday, diabetes, proximal atrial fibrillation, history of ulcerative colitis status post colostomy, recent small bowel obstruction with
peristomal hernia status postrepair with end ileostomy who presents to the emergency department after noticing a change in his stool output.
Patient reported that 2 days ago he started noticing minimal to no output from the stoma. He had mild abdominal distention and some bloating. Reports nausea and vomiting. Denies any fevers or chills. He monitor this for the next 2 days and
patient reported that at around 7 PM on Tuesday he started noticing output again. He showed me the brown-greenish output with gas. He says he has minimal pain currently.
Here in the emergency department he was afebrile, blood pressure was 114/60 with a pulse of 75 and he was satting 95% on room air. CBC was unremarked. Electrolytes normal for potassium of 5.3 otherwise unremarkable. BUN and creatinine consistent
with end-stage renal disease on hemodialysis. Last dialysis was on Tuesday. CT scan of the abdomen and pelvis showed early or partial small bowel obstruction related to parastomal hernia, mildly dilated small bowel throughout the abdomen,
transition point seen with bowel and has parastomal hernia.
Medical History
Past Medical History
Past Medical History: Reports Other
Additional Past Medical History:
ESRD on HD
Diabetes Mellitus, Type II
Paroxysmal Atrial Fibrillation
Essential Hypertension
Orthostatic Hypotension
Right Hydronephrosis s/p Right Percutaneous Nephrostomy
Ulcerative Colitis s/p Colectomy with Ileostomy
Parastomal Hernia
BPH
Gout
Past Surgical History: Reports Other
Additional Past Surgical History:
Colectomy with Ileostomy
Right Percutaneous Nephrostomy
Right Inguinal Hernia Repair
Tonsillectomy
Social History
Tobacco: Former Smoker (Quit in 1984)
Family History
Family History: Not pertinent
Allergies / Home Medications
Allergies reflects when Allergies were last updated in [facility].
Home Medications with original date entered in [facility]
Allergy/Medication List:
Allergies
Allergy/AdvReac Type Severity Reaction Status Date / Time
vancomycin Allergy Hives Verified 06/06/24 19:18
Home Medications
acetaminophen 500 mg tablet 1,000 mg PO Q6H PRN mild pain/fever 12/19/23
allopurinol 100 mg tablet 100 mg PO BID Gout 12/19/23
amiodarone 200 mg tablet 200 mg PO DAILY AFIB 12/19/23
apixaban 2.5 mg tablet (Eliquis) 2.5 mg PO BID Blood Clot Prevention/Tx 12/19/23
atorvastatin 40 mg tablet 40 mg PO HS High Cholesterol 12/19/23
cholecalciferol (vitamin D3) 50 mcg (2,000 unit) capsule (Vitamin D3) 50 mcg PO DAILY Supplement 12/19/23
coenzyme Q10 100 mg capsule 100 mg PO DAILY Supplement 12/19/23
insulin aspart U-100 100 unit/mL (3 mL) subcutaneous pen 14 unit SC AC Diabetes 12/19/23
insulin aspart U-100 100 unit/mL (3 mL) subcutaneous pen 18 unit SC AC Diabetes 12/19/23
insulin degludec 100 unit/mL (3 mL) subcutaneous pen (Tresiba FlexTouch U-100 insulin) 36 unit SC HS Diabetes 12/19/23
metoprolol tartrate 50 mg tablet 50 mg PO TID Blood Pressure 12/19/23
midodrine 10 mg tablet 20 mg PO TID Blood Pressure 12/19/23
sucroferric oxyhydroxide 500 mg chewable tablet (Velphoro) 1,000 mg PO BID Supplement 12/19/23
tamsulosin 0.4 mg capsule 0.4 mg PO HS Urinary Issue 12/19/23
tramadol 50 mg tablet 50 mg PO Q6H PRN moderate/severe 12/19/23
Review of Systems
-
History Source: Patient
Constitutional: Reports No Symptoms
EENT: Reports No Symptoms
Respiratory: Reports No Symptoms
Cardiac: Reports No Symptoms
Abdomen/GI: Reports Nausea and Vomiting
: Reports No Symptoms
Musculoskeletal: Reports No Symptoms
Skin: Reports No Symptoms
Neurological: Reports No Symptoms
Endocrine: Reports No Symptoms
Hematologic/Lymphatic: Reports No Symptoms
Psych: Reports No Symptoms
Physical Exam
Vital Signs
Vital Signs
Temp Pulse Resp BP Pulse Ox
98.2 F 75 24 114/60 95
06/06/24 19:18 06/07/24 01:15 06/07/24 00:45 06/07/24 00:00 06/07/24 01:15
Physical Exam
General: Well Developed, Well Nourished, No Apparent Distress and Comfortable
HEENT: NormoCephalic, Anicteric, Moist mucous membranes and Atraumatic
Respiratory: Clear
Cardiac: S1/S2 and Regular Rhythm
Breast: Deferred by me
GI: Non Tender, Normal Bowel Sounds, Distended, No Hepatosplenomegaly and Ostomy (gas and brown/green liquid c/w normal ileostomy output)
Rectal: Deferred by Provider
Genito-urinary: Deferred by me
Musculoskeletal: No Clubbing, No Cyanosis and No Edema
Skin: Warm
Neuro: AO x 3 and Nonfocal/grossly intact
Hematologic/Lymphatic: No Lymphadenopathy
Psych: Calm
Laboratory Results
-
06/06/24 19:31
06/06/24 19:31
Laboratory Results
Lactic Acid 1.9 mmol/L (0.7-2.0) 06/07/24 00:22
Total Bilirubin 0.7 mg/dl (0.2-1.3) 06/06/24 19:31
AST 25 U/L (17-59) 06/06/24 19:31
ALT 28 U/L (0-50) 06/06/24 19:31
Alkaline Phosphatase 97 U/L (38-126) 06/06/24 19:31
Lipase 64 U/L (23-300) 06/06/24 19:31
Data Reviewed
-
CT Scan: Report Reviewed by me
Lab Data: Labs Reviewed by me
Old Records: Reviewed
Impression/Plan
-
IMPRESSION:
83 y.o male with multiple commorbidities including UC s/p colectomy with end-ileostomy and recent parastomal hernia with SBO s/p repair Dec 2023 comes in with concern for bowel obstruction. 2 days of reduced to no output from ostomy with abdominal
pain, nausea and vomiting. Has been having output again since 7tuesday. No fevers or chills. No abscess. Currently without n/v and with minimal pain not requiring analgesics.
PLAN:
SBO - CT with partial or early SBO. Suspect partial SBO. HD stable. NO vomiting, + BMs. Output in stoma
- admit to med/surg
- npo for now except meds
- serial examinations
- currently no indication for NG tubes
- pain control and antiemetics
- kvo
- surgery consulted and notified.
ESRD - s/p HD tuesday. K 5.1
- repeat K in am, if high may need HD early and temporizing
- midodrine 20 po tid
- nephrology consultation
AFIB -
- while npo, holding elqiis for now
- continue amio 200 daily
- metoprolol tartrate 5mg q6 hours with hold parameters on non-dialysis days
IDDM - on tresiba 44 hs and sliding scale at home
- holding long acting
- aspart sliding scale q6
DVT PPX - heparin sq for now
Code status - full code
[2024-06-07 03:31] VITALS: BP 114/71; BMI 34.4
[2024-06-07] MEDS: 0.45%NACL 1000 IV (03:38)
[2024-06-07 04:05] VITALS: BMI 34.4
[2024-06-07 06:00] VITALS: BMI 34.4
[2024-06-07 06:35] LABS: Glucose - Point of Care 78 mg/dl (70-99)
[2024-06-07] MEDS: LOPRESSOR 55 MG IV ×3 (06:44→17:07)
[2024-06-07 07:45] VITALS: BP 114/59
[2024-06-07] MEDS: ProAmatine 20 MG PO ×2 (08:27→17:08)
[2024-06-07] MEDS: HEPARIN 5000 UNITS SC ×2 (08:27→17:08)
[2024-06-07] MEDS: PACERONE 200 MG PO (08:27)
[2024-06-07 08:49] LABS: Blood Urea Nitrogen 28 mg/dl (9-20); Calcium 8.6 mg/dl (8.4-10.2); Carbon Dioxide 27 mmol/L (22-30); Chloride 97 mmol/L (98-107); Estimated Creatinine Clearance 11 ml/min; Glucose 77 mg/dl (70-99); Potassium 5.4 mmol/L (3.5-5.1); Sodium 136 mmol/L (135-145); eGFR 8.41
--- NOTE | 2024-06-07 09:39 | CM ---
Reviewed the chart notes and spoke with the patient at the bedside. The patient is admitted for partial sbo. The patient resides with his spouse in a two story home with one step to enter. The patient reports no DME use. The patient has had
[facility] in the past and been to [facility]. The patient confirmed her pharmacy of choice is the [facility]. CM continues to be available to patient/family and is monitoring medical plan for needs at discharge.
Plan: Discharge to home when medically stable. No needs anticipated at this time.
--- NOTE | 2024-06-07 09:44 | CON.GS ---
Consultation
-
Reason for Consultation: Parastomal hernia with small bowel obstruction
Medical History
-
Chief Complaint: Abdominal pain, nausea vomiting
History of Present Illness:
Patient is an 83-year-old male known to myself after recently having undergone open repair of an acutely incarcerated parastomal hernia with small bowel obstruction on 12/20/2023. Postoperative course unremarkable with return of regular ostomy
function. Subsequent outpatient surgical follow-up without any initial postoperative concerns or signs of early parastomal hernia recurrence.
He has also undergone a diagnostic laparoscopy converted to laparotomy, subtotal colectomy with creation of permanent end ileostomy at [facility] on 04/05/2023 for fulminant/severe ulcerative colitis. He has had progressive
swelling on the right side of the abdominal wall adjacent to his end ileostomy. It has been increasing in size and there is some associated prolapse.
Patient states that he has been doing well. He was unaware of any signs/symptoms of his parastomal hernia repair having a recurrence until about 2 weeks ago when it began to look a bit more protuberant but he was associating this with gas in his
appliance more so than a new hernia. He started utilizing his hernia appliance belt again. On Tuesday into Tuesday he acutely developed obstructive symptoms with his ostomy output stopping. His symptoms persisted with nausea and dry heaves and
lack of ostomy outputs. While he was driving to the emergency department yesterday afternoon/evening for evaluation his symptoms began to alleviate themselves which he associated with driving over the bumps in the road and his ostomy resumed output.
CT imaging concerning for recurrent parastomal herniaWith some stranding in the vicinity prompting admission overnight and surgical consultation.
Ostomy has been emptied multiple times overnight and into this a.m. with both liquid/semiformed stool and gas production. He still has some discomfort but no severe pain. No further nausea nor vomiting and his appetite is returning.
Past Medical History
Past Medical History: Other (GERD, ESRD on HD, BMI 35, BPH, insulin-dependent diabetes mellitus, MGUS, P A-fib, orthostatic hypotension, hyperlipidemia, history of bladder stones, history of ulcerative colitis)
Past Surgical History: Other (Right inguinal hernia repair, percutaneous nephrostomy tube, pilonidal cyst, total abdominal colectomy with end ileostomy; open repair of parastomal hernia 12/20/2023)
Social History
Tobacco: Former Smoker
Alcohol: None
Personal:
Living: With Family
Employment: Employed
Family History
Family History: Reviewed & Not Pertinent
Allergies / Home Medications
Allergy/AdvReac Type Severity Reaction Status Date / Time
vancomycin Allergy Hives Verified 06/06/24 19:18
�Medication �Instructions �Recorded �Confirmed �Type
acetaminophen 500 mg tablet 1,000 mg PO Q6H PRN mild pain/fever 12/19/23 06/07/24 History
allopurinol 100 mg tablet 100 mg PO BID Gout 12/19/23 06/07/24 History
amiodarone 200 mg tablet 200 mg PO DAILY AFIB 12/19/23 06/07/24 History
apixaban 2.5 mg tablet (Eliquis) 2.5 mg PO BID Blood Clot 12/19/23 06/07/24 History
Prevention/Tx
atorvastatin 40 mg tablet 40 mg PO HS High Cholesterol 12/19/23 06/07/24 History
cholecalciferol (vitamin D3) 50 50 mcg PO DAILY Supplement 12/19/23 06/07/24 History
mcg (2,000 unit) capsule (Vitamin
D3)
coenzyme Q10 100 mg capsule 100 mg PO DAILY Supplement 12/19/23 06/07/24 History
insulin aspart U-100 100 unit/mL 14 unit SC AC Diabetes 12/19/23 06/07/24 History
(3 mL) subcutaneous pen
insulin aspart U-100 100 unit/mL 18 unit SC AC Diabetes 12/19/23 06/07/24 History
(3 mL) subcutaneous pen
insulin degludec 100 unit/mL (3 36 unit SC HS Diabetes 12/19/23 06/07/24 History
mL) subcutaneous pen (Tresiba
FlexTouch U-100 insulin)
metoprolol tartrate 50 mg tablet 50 mg PO TID Blood Pressure 12/19/23 06/07/24 History
midodrine 10 mg tablet 20 mg PO TID Blood Pressure 12/19/23 06/07/24 History
sucroferric oxyhydroxide 500 mg 1,000 mg PO BID Supplement 12/19/23 06/07/24 History
chewable tablet (Velphoro)
tamsulosin 0.4 mg capsule 0.4 mg PO HS Urinary Issue 12/19/23 06/07/24 History
tramadol 50 mg tablet 50 mg PO Q6H PRN moderate/severe 12/19/23 06/07/24 History
Review of Systems
-
History Source: Patient
All other systems: Negative unless noted
A 10 point review of systems was completed, and was negative except as per HPI.
Physical Exam
Vital Signs
Temp Pulse Resp BP Pulse Ox
98.4 F 68 16 114/59 94
06/07/24 07:45 06/07/24 08:27 06/07/24 07:45 06/07/24 08:27 06/07/24 07:45
06/06/24 06/07/24 06/08/24
06:59 06:59 06:59
Actual Weight 105.642 kg
Body Mass Index (BMI) 34.4
Lab Results
06/06/24 19:31
06/07/24 07:25
WBC 11.7 10^3/uL (4.8-10.8) H 06/06/24 19:31
Hgb 12.0 g/dL (13.0-18.0) L 06/06/24 19:31
Hct 35.2 % (39.0-52.0) L 06/06/24 19:31
Plt Count 243 10^3/uL (130-400) 06/06/24 19:31
Abs Immat Gran (auto) 0.0 10^3/uL (0-0.05) 06/06/24 19:31
Neutrophils % 73.7 % (42.2-75.2) 06/06/24 19:31
Physical Exam
General: Well Developed, Well Nourished, No Apparent Distress and Comfortable
HEENT: Moist Mucous Membranes
Respiratory: Non Labored Respirations
GI: Soft, Tender (Minimal tenderness on the a parastomal hernia site. No rebound, no rigidity, no guarding), Distended (Softly distended not tympanitic) and Other (Right-sided end ileostomy. Parastomal hernia soft, unable to assess if able to
reduce due to patient's body habitus. No overlying skin changes. Mucosa pink, some residual stool and air within the appliance bag.)
Neuro: AO x 3
Psych: Calm
Data Reviewed
-
CT Scan: Image Personally Visualized and interpreted and Discussed with Physician
Labs: Labs Reviewed by me and Discussed with Patient
Assessment / Plan
-
Assessment: 83-year-old male with permanent end ileostomy presenting with recurrent parastomal hernia and secondary small bowel obstructive symptoms.
No clinical signs of strangulation or high-grade obstruction and his ostomy is functional again. No signs of immediate bowel compromise or threat on CT imaging.
Patient last took his Eliquis this past evening, 12 hours ago.
Plan: No immediate signs of bowel compromise or threat clinically or radiographically.
Advised patient of not unexpected finding of recurrent parastomal hernia which likely contributed to his obstructive symptoms. Patient is also attributing it to his recent use of an appliance belt for support.
Given prompt clinical improvement will attempt dietary advancement starting with liquids today
If symptoms remain resolved we discussed plan for interval repair of his parastomal hernia but this would likely be arranged as an outpatient -probable robotic assisted laparoscopic approach and utilization of mesh.
If tolerates p.o. challenge okay for DC from surgical standpoint and outpatient surgical follow-up will be arranged
--- NOTE | 2024-06-07 09:58 | WOUNDNOTE ---
WOC RN NOTE: Reviewed chart and met with patient. Patient has an established ileostomy which he manages independently at home. He last changed pouch 06/06. Patient denies problems with pouch or teaching needs. Will sign off.
[2024-06-07 11:05] LABS: Glucose - Point of Care 85 mg/dl (70-99)
--- NOTE | 2024-06-07 11:19 | W.PN.HOSP.TC ---
Today's Communication/Plan
-
Clear liquid diet
Serial abdomen exam
Plan for NGT if vomiting
HD schedule resumed inpatient
Assessment / Plan
Assessment / Plan
#Small bowel obstruction -- early first partial
#Suspected stomal hernia
#H/O recurrent SBO
-Presented with lack of stool output noted in his colostomy bag, abdomen pain over 2 days time
-CT A/P on arrival showed signs of early versus partial SBO in the parastomal hernia
-Has not had any significant nausea nor vomiting, remains without NG tube
-States that as of this morning he has output again
-Continue with clear liquid diet and monitor ostomy output
-Plan for NGT if he develops vomiting or worsening abdomen distention
-Serial abdomen exams, continue with antiemetics and analgesics
-General Surgery following
#ESRD
#S/p right PCN
-Due to obstructive uropathy from uric acid stones; hemodialysis every Tuesday/Tuesday/Tuesday
-Does not seem to have significant degree of acidemia, AoCKD; does have bone mineral disease
-Home medications include Velphoro 1 g twice daily as phosphate binder, vitamin D3 daily
-Nephrology consulted to continue dialysis, trend daily BMP/mag/Phos
#Paroxysmal AF
-No known history of electrophysiologic interventions
-Home regimen includes reduced dose Eliquis, metoprolol, amiodarone
-Appears in NSR at this time
#Orthostatic hypotension
-Home regimen includes midodrine 20 mg 3 times daily
-Monitor for instability, fall precautions
-No signs of hypertension on current regimen
#Ulcerative colitis s/p colostomy
#Peristomal hernia
-No longer on immunosuppressive regimen; has ostomy in place
-Imaging with signs of peristomal hernia, suspect contributing to SBO's
#IDDM
-No recent A1c; no known history of microvascular systemic disease
-Home regimen includes 36 units long-acting insulin nightly and mealtime insulin
-Transition to long-acting insulin with ISS and Accu-Cheks here
-Blood glucose goal 140-180
#BPH
-Home regimen includes tamsulosin
#Gout
#H/O uric acid nephrolithiasis
-Remains on home allopurinol regimen
-Severe disease with uric acid stones leading to ESRD from
-No signs of gout flare
DVT prophylaxis: SQ heparin
Diet: CLD for now
CODE STATUS: Full code
Anticipated Discharge: 24 - 48 hours
Subjective/Interval History
-
Date of Service: June 07, 2024
Seen and examined at the bedside. No acute events reported overnight. AFVSS this morning.
Patient states he developed ostomy output after admission. Denies any nausea or vomiting today
Surgery okay for clear liquids
Objective Data
-
Labs:
Laboratory Results
06/07/24
07:25
Sodium 136
Potassium 5.4 H
Chloride 97 L
Carbon Dioxide 27
BUN 28 H
Creatinine 6.2 H*
Glucose 77
Calcium 8.6
Vital Signs:
Vital Signs
Temp Pulse Resp BP Pulse Ox
98.4 F 68 16 114/59 94
06/07/24 07:45 06/07/24 08:27 06/07/24 07:45 06/07/24 08:27 06/07/24 07:45
I&O
06/06/24 06/07/24 06/08/24
06:59 06:59 06:59
Output Total 100 / 100
Balance -100 / -100
Review of Systems
-
History Source: Patient
All other systems: Reviewed and negative
Physical Exam
-
General: Well Developed, No Apparent Distress, Comfortable and Obese
HEENT: Normocephalic, Atraumatic and Moist Mucous Membranes
Respiratory: Clear to Auscultation and Non Labored Respirations
Cardiac: Regular Rhythm and S1/S2; Negative Murmur, Rub or Gallop
GI: Soft, Nontender, Nondistended, Normal Bowel Sounds and Ostomy
Musculoskeletal: No Clubbing, No Cyanosis and No Edema
Skin: Warm, Dry and Normal Turgor; Negative Rash
Neuro: AO x 3 and Nonfocal/Grossly Intact
Psych: Calm
Data Reviewed
-
Labs: Labs Reviewed by me and Discussed with Patient
[2024-06-07] MEDS: ProAmatine PO (11:46)
[2024-06-07 13:49] LABS: Urine Albumin 3+ (Neg - Trace); Urine Bilirubin Negative (Negative); Urine Character Cloudy (Clear); Urine Color Yellow; Urine Glucose Negative (Negative); Urine Ketone Negative (Negative); Urine Leukocyte 3+ (Negative); Urine Nitrite Negative (Negative); Urine Occult Blood 4+ (Negative); Urine Specific Gravity 1.015 (<1.030); Urine Urobilinogen Negative (Neg - 1+)
[2024-06-07 13:55] LABS: Urine White Cell >100 /HPF (0-5)
--- NOTE | 2024-06-07 14:09 | W.CON.NEPH ---
Consultation
-
Date/Time Consultation Requested: 06/07/2024 at 7 AM
Date/Time Consultation Performed: 06/07/2024 at 2 PM
Requesting Provider: Dr. honeycutt
Performing Provider: Dr. Bazan
Reason for Consultation: ESRD
Medical History
-
Chief Complaint: ESRD
History of Present Illness:
83-year-old with past medical history of end-stage renal disease on hemodialysis Tuesday, diabetes, proximal atrial fibrillation, history of ulcerative colitis status post colostomy, recent small bowel obstruction with peristomal
hernia status postrepair with end ileostomy who presents to the emergency department after noticing a change in his stool output.
Renal consult for end-stage renal disease last treatment Tuesday. Receives his dialysis in [place] at [facility].
Past Medical History
Medical history of end-stage renal disease on hemodialysis Tuesday, diabetes, proximal atrial fibrillation, history of ulcerative colitis status post colostomy, recent small bowel obstruction with peristomal hernia status postrepair
with end ileostomy
Social History
Tobacco: Non-Smoker
Alcohol: None
Allergies / Home Medications
Allergy/AdvReac Type Severity Reaction Status Date / Time
vancomycin Allergy Hives Verified 06/06/24 19:18
�Medication �Instructions �Recorded �Confirmed �Type
acetaminophen 500 mg tablet 1,000 mg PO Q6H PRN mild pain/fever 12/19/23 06/07/24 History
allopurinol 100 mg tablet 100 mg PO BID Gout 12/19/23 06/07/24 History
amiodarone 200 mg tablet 200 mg PO DAILY AFIB 12/19/23 06/07/24 History
apixaban 2.5 mg tablet (Eliquis) 2.5 mg PO BID Blood Clot 12/19/23 06/07/24 History
Prevention/Tx
atorvastatin 40 mg tablet 40 mg PO HS High Cholesterol 12/19/23 06/07/24 History
cholecalciferol (vitamin D3) 50 50 mcg PO DAILY Supplement 12/19/23 06/07/24 History
mcg (2,000 unit) capsule (Vitamin
D3)
coenzyme Q10 100 mg capsule 100 mg PO DAILY Supplement 12/19/23 06/07/24 History
insulin aspart U-100 100 unit/mL 14 unit SC AC Diabetes 12/19/23 06/07/24 History
(3 mL) subcutaneous pen
insulin aspart U-100 100 unit/mL 18 unit SC AC Diabetes 12/19/23 06/07/24 History
(3 mL) subcutaneous pen
insulin degludec 100 unit/mL (3 36 unit SC HS Diabetes 12/19/23 06/07/24 History
mL) subcutaneous pen (Tresiba
FlexTouch U-100 insulin)
metoprolol tartrate 50 mg tablet 50 mg PO TID Blood Pressure 12/19/23 06/07/24 History
midodrine 10 mg tablet 20 mg PO TID Blood Pressure 12/19/23 06/07/24 History
sucroferric oxyhydroxide 500 mg 1,000 mg PO BID Supplement 12/19/23 06/07/24 History
chewable tablet (Velphoro)
tamsulosin 0.4 mg capsule 0.4 mg PO HS Urinary Issue 12/19/23 06/07/24 History
tramadol 50 mg tablet 50 mg PO Q6H PRN moderate/severe 12/19/23 06/07/24 History
Review of Systems
-
No chest pain or shortness of breath improved output of his
All other systems: Negative unless noted
Physical Exam
Vital Signs
Vital Signs
Temp Pulse Resp BP Pulse Ox
98.4 F 62 16 138/80 94
06/07/24 07:45 06/07/24 11:46 06/07/24 07:45 06/07/24 11:46 06/07/24 07:45
Lab Results
WBC 11.7 10^3/uL (4.8-10.8) H 06/06/24 19:31
RBC 3.53 10^6/uL (4.70-6.10) L 06/06/24 19:
Hgb 12.0 g/dL (13.0-18.0) L 06/06/24 19:
Hct 35.2 % (39.0-52.0) L 06/06/24 19:31
Plt Count 243 10^3/uL (130-400) 06/06/24 19:31
Sodium 136 mmol/L (135-145) 06/07/24 07:25
Potassium 5.4 mmol/L (3.5-5.1) H 06/07/24 07:25
Chloride 97 mmol/L (98-107) L 06/07/24 07:25
Carbon Dioxide 27 mmol/L (22-30) 06/07/24 07:25
BUN 28 mg/dl (9-20) H 06/07/24 07:25
Creatinine 6.2 mg/dL (0.7-1.3) H* 06/07/24 07:25
eGFR 8.41 06/07/24 07:25
Glucose 77 mg/dl (70-99) 06/07/24 07:25
Calcium 8.6 mg/dl (8.4-10.2) 06/07/24 07:25
Albumin 4.8 g/dl (3.5-5.0) 06/06/24 19:31
Physical Exam
General no acute distress
HEENT no cephalic atraumatic extraocular muscle intact no scleral icterus no JVD neck supple
lungs clear to auscultation bilateral
heart regular S1-S2 positive
abdomen soft nontender positive bowel sounds
extremities no edema pulses present bilateral
Neurologically nonfocal alert and oriented x 3
Skin no lesions no abrasions no petechiae
Psych normal affect no bizarre behavior
Data Reviewed
-
CT Scan: Image Personally Visualized and interpreted
Labs: Labs Reviewed by me, Discussed with Nurse and Discussed with Patient
Assessment/Plan
-
83-year-old with past medical history of end-stage renal disease on hemodialysis Tuesday, diabetes, proximal atrial fibrillation, history of ulcerative colitis status post colostomy, recent small bowel obstruction with peristomal
hernia status postrepair with end ileostomy who presents to the emergency department after noticing a change in his stool output.
Renal consult for end-stage renal disease last treatment Tuesday. Receives his dialysis in [place] at [facility].
Assessment:
Small Bowel Obstruction, possible symptomatic peristomal hernia
s/p open repair of incarcerated parastomal hernia 12/19
Right Hydronephrosis s/p Right Percutaneous Nephrostomy- right kidney mass suspicious for renal cell carcinoma. follows urologist
ESRD on Tuesday
Diabetes Mellitus, Type II
Paroxysmal Atrial Fibrillation
Essential Hypertension
BPH
Plan
No acute need for dialysis today
Dialysis ordered for tomorrow.
Estimated dry weight 108.6 kg
See orders for details
[2024-06-07 15:00] VITALS: BP 116/60
[2024-06-07 16:36] LABS: Glucose - Point of Care 115 mg/dl (70-99)
--- NOTE | 2024-06-07 16:40 | W.PN.SURGUPD ---
Surgical Update
Surgical Update
Tolerating liquid diet well.
No abdominal pain, no cramps, no distention.
/friend at bedside.
Ostomy continues to function throughout the day.
Advance to low residue diet and monitor.
Probable DC home tomorrow after hemodialysis if obstructive symptoms remain relieved.
Would continue to hold therapeutic anticoagulation this evening with ongoing p.o. challenge
[2024-06-07] MEDS: FLOMAX 0.4 MG PO (21:08)
[2024-06-07 22:54] LABS: Glucose - Point of Care 163 mg/dl (70-99)
[2024-06-07 23:25] VITALS: BP 138/67
[2024-06-08] MEDS: LOPRESSOR 55 MG IV (00:12)
[2024-06-08] MEDS: HEPARIN 5000 UNITS SC ×2 (00:31→13:12)
[2024-06-08] MEDS: LOPRESSOR IV ×2 (05:18→12:00)
[2024-06-08 07:30] VITALS: BP 130/69
[2024-06-08] MEDS: ProAmatine 20 MG PO ×2 (07:42→13:21)
[2024-06-08] MEDS: PACERONE 200 MG PO (07:44)
[2024-06-08 07:53] LABS: Glucose - Point of Care 116 mg/dl (70-99)
[2024-06-08 07:53] LABS: % Basophils 0.6 % (0-2); % Eosinophils 4.1 % (0-6); % Immature Granulocytes 0.4 % (0-0.5); % Lymphocytes 24.3 % (20.5-51.1); % Monocytes 15.8 % (1.7-9.3); % Neutrophils 54.8 % (42.2-75.2); Absolute Eosinophils 0.3 10^3/uL (0-0.7); Absolute Lymphocytes 1.7 10^3/uL (1.2-3.4); Absolute Monocytes 1.1 10^3/uL (0.1-0.6); Absolute Neutrophils 3.7 10^3/uL (1.4-6.5); Hematocrit 31.9 % (39.0-52.0); Hemoglobin 10.5 g/dL (13.0-18.0); Mean Corp Hgb Conc. 32.9 g/dL (33.0-37.0); Mean Corpuscular Hgb 33.1 pg (27.0-31.0); Mean Corpuscular Volume 100.6 fL (80.0-94.0); Mean Platelet Volume 9.7 fL (7.4-10.4); Nucleated Red Blood Cells % 0 % (-); Platelet Count 202 10^3/uL (130-400); Red Blood Cell Count 3.17 10^6/uL (4.70-6.10); Red Cell Dist. Width 13.4 % (11.5-14.5); White Blood Cell Count 6.8 10^3/uL (4.8-10.8)
[2024-06-08 08:16] LABS: Blood Urea Nitrogen 37 mg/dl (9-20); Calcium 8.4 mg/dl (8.4-10.2); Carbon Dioxide 22 mmol/L (22-30); Chloride 95 mmol/L (98-107); Estimated Creatinine Clearance 8 ml/min; Glucose 121 mg/dl (70-99); Magnesium 1.9 mg/dl (1.6-2.3); Phosphorus 6.6 mg/dl (2.5-4.5); Potassium 5.3 mmol/L (3.5-5.1); Sodium 135 mmol/L (135-145); eGFR 5.76
--- NOTE | 2024-06-08 08:48 | W.PN.GS2 ---
Addendum entered and electronically signed by Liam Maravilla MD 06/08/24 09:08:
Patient seen and examined in follow-up with surgical [employer]. Agree with documented progress note
Slight abdominal cramping and some swelling in the region of his parastomal hernia but presenting symptoms remain resolved. No nausea, no vomiting, tolerated low residue diet. Continued normal ostomy outputs.
AFVSS
ABD: Soft, obese but not distended. Slight tenderness on palpation ostomy. Fullness from parastomal hernia but soft. Mucosa pink. Ostomy appliance with semiformed stool and air.
A/P: 83-year-old male with recurrent parastomal hernia presenting with secondary SBO but no signs of strangulation and clinically resolving.
Patient's preference is for discharge with interval surgical evaluation and correction
Okay for DC and my office will reach out to schedule his follow-up with myself.
Counseled regarding dietary changes and avoidance of heavy lifting/abdominal straining to minimize risk of recurrent symptoms while awaiting interval scheduling surgery.
Original Note:
Today's Communication / Plan
-
dispo planning
Assessment / Plan
-
83-year-old male with permanent end ileostomy presenting with recurrent parastomal hernia and secondary small bowel obstructive symptoms.
AFVSS
Labs stable, HD today
Stoma productive of stool/flatus, pt tolerating diet
--Continue LRD
--OK for discharge from surgical standpoint
Outpatient follow up discussed to plan interval repair of his parastomal hernia
Subjective Data
-
Date of Service: June 08, 2024
Patient seen and examined at bedside with Dr. Maravilla. Denies n/v. Tolerating diet. A little abd cramping last night, otherwise no pain or discomfort. Good outputs from stoma.
Objective Data
-
Intake and Output
06/07/24 06/08/24 06/09/24
06:59 06:59 06:59
Intake Total 650 / 650
Output Total 100 / 100 200 / 200 620 / 620
Balance -100 / -100 -200 / -200 30 / 30
Intake:
Oral fluids 240 / 240
IV fluids (Total) 360 / 360
IV piggybacks 50 / 50
Output:
Liquid stool amount 100 / 100 520 / 520
Colostomy 100 / 100 520 / 520
Urine, Voided 200 / 200 100 / 100
Vital Signs
Temp Pulse Resp BP Pulse Ox
98.2 F 75 16 130/69 93
06/08/24 07:30 06/08/24 07:44 06/08/24 07:30 06/08/24 07:44 06/08/24 07:30
Lab Results
06/08/24 07:11
06/08/24 07:11
Calcium 8.4 mg/dl (8.4-10.2) 06/08/24 07:11
Phosphorus 6.6 mg/dl (2.5-4.5) H 06/08/24 07:11
Magnesium 1.9 mg/dl (1.6-2.3) 06/08/24 07:11
Total Bilirubin 0.7 mg/dl (0.2-1.3) 06/06/24 19:31
AST 25 U/L (17-59) 06/06/24 19:31
ALT 28 U/L (0-50) 06/06/24 19:31
Alkaline Phosphatase 97 U/L (38-126) 06/06/24 19:31
Total Protein 8.5 g/dl (6.3-8.2) H 06/06/24 19:31
Albumin 4.8 g/dl (3.5-5.0) 06/06/24 19:31
Physical Exam
-
NAD AAOx3
ABD: softly distended,
Right end ileostomy with soft peristomal hernia present, stoma pink, healthy. loose brown stool in appliance, flatus in bag
--- NOTE | 2024-06-08 11:17 | W.PN.NEPH.HD ---
Assessment
-
pt seen during HD
vitals stable s/p midodrine
UF as tolerates to EDW
AVF functions well
for d/c today
Progress Note - Hemodialysis
-
Date of Service: June 08, 2024
Duration: 30 minutes and 3 hours
Potassium Bath: 2
Calcium Bath: 2.5
Opti-Dialyzer: 160
Ultrafiltration: Other (1.5-2kg)
Blood Flow: 400
Dialysate Flow: 600
Heparin: no
EPO: no
[2024-06-08] MEDS: MUCINEX 1200 MG PO (11:20)
[2024-06-08 13:32] LABS: Glucose - Point of Care 132 mg/dl (70-99)
--- NOTE | 2024-06-08 13:46 | W.PN.HOSP.TC ---
Today's Communication/Plan
-
Discharge after dialysis
Assessment / Plan
Assessment / Plan
#Small bowel obstruction -- early first partial
#Suspected stomal hernia
#H/O recurrent SBO
-Presented with lack of stool output noted in his colostomy bag, abdomen pain over 2 days time
-CT A/P on arrival showed signs of early versus partial SBO in the parastomal hernia
-Has not had any significant nausea nor vomiting, remains without NG tube
-States that as of this morning he has output again
-Continue with clear liquid diet and monitor ostomy output
-Plan for NGT if he develops vomiting or worsening abdomen distention
-Serial abdomen exams, continue with antiemetics and analgesics
-General Surgery following
#ESRD
#S/p right PCN
-Due to obstructive uropathy from uric acid stones; hemodialysis every Tuesday/Tuesday/Tuesday
-Does not seem to have significant degree of acidemia, AoCKD; does have bone mineral disease
-Home medications include Velphoro 1 g twice daily as phosphate binder, vitamin D3 daily
-Nephrology consulted to continue dialysis, trend daily BMP/mag/Phos
#Paroxysmal AF
-No known history of electrophysiologic interventions
-Home regimen includes reduced dose Eliquis, metoprolol, amiodarone
-Appears in NSR at this time
#Orthostatic hypotension
-Home regimen includes midodrine 20 mg 3 times daily
-Monitor for instability, fall precautions
-No signs of hypertension on current regimen
#Ulcerative colitis s/p colostomy
#Peristomal hernia
-No longer on immunosuppressive regimen; has ostomy in place
-Imaging with signs of peristomal hernia, suspect contributing to SBO's
#IDDM
-No recent A1c; no known history of microvascular systemic disease
-Home regimen includes 36 units long-acting insulin nightly and mealtime insulin
-Transition to long-acting insulin with ISS and Accu-Cheks here
-Blood glucose goal 140-180
#BPH
-Home regimen includes tamsulosin
#Gout
#H/O uric acid nephrolithiasis
-Remains on home allopurinol regimen
-Severe disease with uric acid stones leading to ESRD from
-No signs of gout flare
DVT prophylaxis: SQ heparin
Diet: low residue diet
CODE STATUS: Full code
Anticipated Discharge: Today
Subjective/Interval History
-
Date of Service: June 08, 2024
Seen and examined at the bedside. No acute events reported overnight. AFVSS
Was escalated to low residue diet and has tolerated it well. Seen by surgery who is okay with discharge
Denies any new complaints this morning
Objective Data
-
Labs:
Laboratory Results
06/08/24
07:11
WBC 6.8
Hgb 10.5 L
Hct 31.9 L
Plt Count 202
Sodium 135
Potassium 5.3 H
Chloride 95 L
Carbon Dioxide 22
BUN 37 H
Creatinine 8.5 H*
Glucose 121 H
Calcium 8.4
Vital Signs:
Vital Signs
Temp Pulse Resp BP Pulse Ox
98.2 F 75 16 118/75 93
06/08/24 07:30 06/08/24 07:44 06/08/24 07:30 06/08/24 13:21 06/08/24 07:30
I&O
06/07/24 06/08/24 06/09/24
06:59 06:59 06:59
Intake Total 650 / 650
Output Total 100 / 100 200 / 200 620 / 620
Balance -100 / -100 -200 / -200 30 / 30
Review of Systems
-
History Source: Patient
All other systems: Reviewed and negative
Physical Exam
-
General: Well Developed, No Apparent Distress, Comfortable and Obese
HEENT: Normocephalic, Atraumatic, Moist Mucous Membranes and Anicteric
Respiratory: Clear to Auscultation and Non Labored Respirations
Cardiac: Regular Rhythm, S1/S2 and Murmur; Negative Rub or Gallop
GI: Soft, Nontender, Nondistended and Normal Bowel Sounds
Musculoskeletal: No Clubbing, No Cyanosis and No Edema
Skin: Warm, Dry and Normal Turgor; Negative Rash
Neuro: AO x 3 and Nonfocal/Grossly Intact; Negative Tremors
Psych: Calm
Data Reviewed
-
Labs: Labs Reviewed by me and Discussed with Patient
--- NOTE | 2024-06-08 14:31 | CM ---
Addendum entered by Luz Marina Che 06/08/24 14:34:
Hx: ESRD on HD (M-W-F) at [facility] in [place], GERD, BPH, IDDM, afib, permanent ileostomy (self care)
Original Note:
Patient seen at bedside on HD. Patient HD nurse indicated that she would send clinicals to community chair and patient to provide transportation home. CM completed IMM with patient and copy of chart placed in chart. CM will continue to follow
for discharge planning needs.
Plan; home with no needs follow up with HD
[2024-06-08 15:20] VITALS: BP 110/60
--- NOTE | 2024-06-08 15:42 | W.DCSUMMARY ---
Discharge Summary
Discharge Data
Date of Admission: 06/07/24
Date of Discharge: 06/08/24
Total time spent discharging patient (in min): 33
-
Pending Results: No
Hospital Course
83-year-old male with ESRD on dialysis M/W/F, paroxysmal AF on Eliquis, orthostatic hypotension/primary hypertension, ulcerative colitis s/p colectomy, s/p right percutaneous nephrostomy, T2DM, gout C/B uric acid stones with obstructive uropathy,
recurrent SBO that presented to the hospital with reduced ostomy output and abdominal pain. Initial imaging showing signs of low-grade versus partial small bowel obstruction and signs of parastomal hernia. Was evaluated by general surgery and made
n.p.o., no indication for NGT as he was not vomiting. Quickly improved with spontaneous passing of flatus and stool on clear liquid diet. Was escalated to low residue diet on the evening of first day of hospitalization. Continue to tolerate low
residue diet and was deemed stable for discharge. Referral provided for general surgery, should have follow-up as outpatient for consideration of intervention to his parastomal hernia
Discharge Plan
-
Patient Disposition: Home (Routine Discharge)
Discharge Diagnosis/Procedures: Recurrent partial small bowel obstruction
End-stage renal disease
Condition: Fair
Diet: Low Residue and Other diet
Additional Diets: Sodium and potassium restricted
Activity: As tolerated
Driving Restrictions: No driving for 24 hours
Bathing Restrictions: OK to Shower
Blood Work: Follow-up with PCP and automation engineering technician for repeat labs
Others Tests: None
Activity Restrictions/Additional Instructions:
After discharge from the hospital schedule follow-up appointment with family physician. Should be seen in office within 1 to 2 weeks
Follow-up in office with general surgery in 2 to 4 weeks from discharge, referral provided below
Instructions: Dialysis and diet, Low-fiber diet
Referrals:
Ernesto Infante MD [Family Provider] -
Liam Maravilla MD [Active] - in two to four weeks
Prescriptions:
Continued
atorvastatin 40 mg Tablet
40 mg PO HS
amiodarone 200 mg Tablet
200 mg PO DAILY
allopurinol 100 mg Tablet
100 mg PO BID
tramadol 50 mg Tablet
50 mg PO Q6H PRN (Reason: moderate/severe)
acetaminophen 500 mg Tablet
1,000 mg PO Q6H PRN (Reason: mild pain/fever)
tamsulosin 0.4 mg Capsule
0.4 mg PO HS
metoprolol tartrate 50 mg Tablet
50 mg PO TID
midodrine 10 mg Tablet
20 mg PO TID
coenzyme Q10 100 mg Capsule
100 mg PO DAILY
insulin aspart U-100 100 unit/mL (3 mL) Insulin Pen
14 unit SC AC
Rx Instructions:
Tuesday, Tuesday, Tuesday
insulin aspart U-100 100 unit/mL (3 mL) Insulin Pen
18 unit SC AC
Rx Instructions:
Tuesday, Tuesday, , Tuesday
cholecalciferol (vitamin D3) [Vitamin D3] 50 mcg (2,000 unit) Capsule
50 mcg PO DAILY
Eliquis 2.5 mg Tablet
2.5 mg PO BID
insulin degludec [Tresiba FlexTouch U-100] 100 unit/mL (3 mL) Insulin Pen
36 unit SC HS
Velphoro 500 mg Tablet,Chewable
1,000 mg PO BID
Discharge Orders:
Discharge Patient (As Directed); Ordered 06/08/24
Ordered By: Mike Morales
Discharge Date and Time
Print Language: KINYARWANDA
== END 2024-06-08 15:53 | disposition home or self-care (01) | DRG 393 ==
LOC: 2 SOUTH 03:25
PROVIDERS: Emergency Medicine; Internal Medicine; Nurse Practitioner; ADMITTING PHYSICIAN Internal Medicine; ATTENDING PHYSICIAN Internal Medicine; CONSULT PHYSICIAN Internal Medicine Nephrology; EMERGENCY PHYSICIAN Emergency Medicine; FAMILY PHYSICIAN Internal Medicine Infectious Disease; OTHER PHYSICIAN Surgery
PROC: 5A1D70Z Performance of Urinary Filtration, Intermittent, Less than 6 Hours Per Day (ICD-10-PCS; 2024-06-08)
DX: K43.3 Parastomal hernia with obstruction, without gangrene (principal); N18.6 End stage renal disease; K56.600 Partial intestinal obstruction, unspecified as to cause; I12.0 Hypertensive chronic kidney disease with stage 5 chronic kidney disease or end stage renal disease; K51.90 Ulcerative colitis, unspecified, without complications; Z87.891 Personal history of nicotine dependence; E11.22 Type 2 diabetes mellitus with diabetic chronic kidney disease; I48.0 Paroxysmal atrial fibrillation; I95.1 Orthostatic hypotension; N40.0 Benign prostatic hyperplasia without lower urinary tract symptoms; M10.9 Gout, unspecified; Z90.49 Acquired absence of other specified parts of digestive tract; Z99.2 Dependence on renal dialysis; N13.9 Obstructive and reflux uropathy, unspecified; Z79.01 Long term (current) use of anticoagulants; Z79.4 Long term (current) use of insulin; Z79.899 Other long term (current) drug therapy; Z87.442 Personal history of urinary calculi; Z93.2 Ileostomy status; Z93.3 Colostomy status
CPT/HCPCS: 74177; 80048; 80053; 81003; 81015; 82962; 83605; 83690; 83735; 84100; 85025; 87070; 87077; 87086; 87186; 96361; 96374; 99285; G0257; Q9967

== ENCOUNTER 2024-10-02 11:22 | Inpatient (IN) | payer MEDICARE, OTHER, SELFPAY ==
[2024-10-02] VITALS (14 sets, daily range): BP systolic 101–139; BP diastolic 52–92; BMI 34.1; BMI 34.2
--- NOTE | 2024-10-02 11:25 | HP.FOC2 ---
Focused History & Physical
Chief Complaint
HPI:
Chief Complaint: Parastomal hernia
HPI / Indication for Planned Procedure: Patient is an 84-year-old male well-known to myself after having undergone open repair of an acutely incarcerated parastomal hernia small bowel obstruction in November 2023. His initial postoperative course
was unremarkable. He was recently hospitalized after recurrent swelling was noted at his right sided ileostomy with temporary small bowel obstruction. He was able to be managed conservatively and presents today for scheduled operative correction.
Past abdominal surgical history significant for having undergone laparotomy with subtotal colectomy and creation of a permanent end ileostomy for fulminant/severe ulcerative colitis in March 2023.
Relevant Past Medical History: Other (End-stage renal disease on hemodialysis, history of ulcerative colitis, paroxysmal atrial fibrillation, history of congestive heart failure with normal ejection fraction, moderate aortic stenosis, diabetes
mellitus, anemia and gout)
Relevant Social History: Negative
Relevant Family History: Negative
Relevant Past Surgical History: Positive for (Tonsils, right inguinal hernia repair, total abdominal colectomy with ileostomy, history of percutaneous nephrostomy tube, pilonidal cyst excision, parastomal hernia repair)
Review of Systems
Review of Pertinent Systems: All Systems Negative
Medication
See Medication form for detailed medications: Yes
Medication List (including Herbals & OTC):
acetaminophen 500 mg tablet 1,000 mg PO Q6H PRN mild pain/fever 12/19/23
allopurinol 100 mg tablet 100 mg PO BID Gout 12/19/23
amiodarone 200 mg tablet 200 mg PO DAILY AFIB 12/19/23
apixaban 2.5 mg tablet (Eliquis) 2.5 mg PO BID Blood Clot Prevention/Tx 12/19/23
cholecalciferol (vitamin D3) 50 mcg (2,000 unit) capsule (Vitamin D3) 50 mcg PO DAILY Supplement 12/19/23
coenzyme Q10 100 mg capsule 100 mg PO DAILY Supplement 12/19/23
insulin degludec 100 unit/mL (3 mL) subcutaneous pen (Tresiba FlexTouch U-100 insulin) 40 unit SC HS Diabetes 12/19/23
metoprolol tartrate 50 mg tablet 50 mg PO TID Blood Pressure 12/19/23
midodrine 10 mg tablet 20 mg PO TID PRN Hypotension 12/19/23
sucroferric oxyhydroxide 500 mg chewable tablet (Velphoro) 1,000 mg PO BID Supplement 12/19/23
tamsulosin 0.4 mg capsule 0.4 mg PO HS Urinary Issue 12/19/23
tramadol 50 mg tablet 50 mg PO Q6H PRN moderate/severe 12/19/23
insulin aspart U-100 100 unit/mL subcutaneous solution (Novolog U-100 Insulin aspart) 18 unit SC MEALS 09/25/24
Medications Reviewed: Yes
Allergies and Reactions
Patient has Allergies: Yes
Noted Allergies and Reactions:
Allergy/AdvReac Type Severity Reaction Status Date / Time
vancomycin Allergy Hives, Verified 09/25/24 13:26
Itching
Pertinent Physical Exam
All Other Systems: Negative
Head/Neck: Normal
Lungs: Normal
Heart: Normal
Abdomen: Other (Midline laparotomy surgical scar. Right sided end ileostomy with associated parastomal hernia)
Extremities: Normal
Neurological: Normal
Diagnosis / Assessment
84-year-old male presenting for scheduled operative correction recurrent parastomal hernia
Plan / Procedure
Robotic assisted laparoscopic repair of recurrent parastomal hernia with mesh
Anesthesia/Sedation to be done by Anesthesia Provider: Yes
[2024-10-02 12:14] LABS: Glucose - Point of Care 86 mg/dl (70-99)
[2024-10-02] MEDS: TYLENOL 1000 MG PO (12:14)
[2024-10-02 14:55] LABS: Glucose - Point of Care 98 mg/dl (70-99)
--- NOTE | 2024-10-02 17:06 | W.IMMPOSTOP ---
Addendum entered and electronically signed by Liam Maravilla MD 10/02/24 17:25:
#[id number]
Original Note:
Surgical Immed Post Op Note
-
Primary Surgeon: Liam Maravilla MD
Assisting Surgeon: Darren CROFT
Pre-op Diagnosis: Parastomal hernia
Post-op Diagnosis: Parastomal hernia; 5 cm
Procedure Performed: Robotic assisted laparoscopic repair parastomal hernia with mesh, Sugarbaker technique; Ventralight ST 16 cm x 15 cm
Anesthesia Type: GETA +0.25% Marcaine with epi
Specimen / Cultures: None
Estimated Blood Loss: 20 mL
Complications: None immediate
Operative Findings: No abdominal wall adhesions other than associated with parastomal hernia location. Parastomal hernia defect approximately 5 cm. End ileostomy mesentery and adjacent adhesions released. Distal ileum and associated mesentery
lateralized with numerous interrupted 2-0 Vicryl stitches. Intraperitoneal underlay Sugarbaker mesh repair technique. Ventralight ST 16 cm x 15 cm oriented horizontally and secured with circumferential 2-0 PDS Strattafix.
Plan: Nephrology consult to maintain hemodialysis schedule
Therapeutic anticoagulation (Eliquis) will be 72 hours postop
Clear liquid diet initially while monitoring for signs of bowel recovery/ileostomy function
Patient's updated postoperatively via phone call
[2024-10-02] MEDS: SUBLIMAZE 50 MCG IV (17:15)
[2024-10-02 17:20] LABS: Glucose - Point of Care 97 mg/dl (70-99)
--- NOTE | 2024-10-02 17:46 | W.CON.NEPH ---
Consultation
-
Date/Time Consultation Requested: 10/02/2024 5:00 PM
Date/Time Consultation Performed: 10/02/2024 5:30 PM
Requesting Provider: Dr. Maravilla
Performing Provider: Dr. Lockhart
Reason for Consultation: End-stage renal disease
Medical History
-
Chief Complaint: ESRD
History of Present Illness:
84-year-old with past medical history of end-stage renal disease on hemodialysis Tuesday who dialyzes at [facility] in [place] , diabetes on insulin , proximal atrial fibrillation chronically anticoagulated on Eliquis, history of
ulcerative colitis status post colostomy, small bowel obstruction with peristomal hernia status postrepair with end ileostomy who presents today for elective surgery for parastomal hernia repair. Nephrology was consulted for end-stage renal
disease manage
Past Medical History
Medical history of end-stage renal disease on hemodialysis Tuesday, diabetes, proximal atrial fibrillation, history of ulcerative colitis status post colostomy, recent small bowel obstruction with peristomal hernia status postrepair
with end ileostomy
Social History
Tobacco: Non-Smoker
Alcohol: None
Family History
Family History: Not Pertinent
Allergies / Home Medications
Allergy/AdvReac Type Severity Reaction Status Date / Time
vancomycin Allergy Hives, Verified 10/02/24 12:04
Itching
�Medication �Instructions �Recorded �Confirmed �Type
acetaminophen 500 mg tablet 1,000 mg PO Q6H PRN mild pain/fever 12/19/23 10/02/24 History
allopurinol 100 mg tablet 100 mg PO BID Gout 12/19/23 10/02/24 History
amiodarone 200 mg tablet 200 mg PO DAILY AFIB 12/19/23 10/02/24 History
apixaban 2.5 mg tablet (Eliquis) 2.5 mg PO BID Blood Clot 12/19/23 10/02/24 History
Prevention/Tx
cholecalciferol (vitamin D3) 50 50 mcg PO DAILY Supplement 12/19/23 10/02/24 History
mcg (2,000 unit) capsule (Vitamin
D3)
coenzyme Q10 100 mg capsule 100 mg PO DAILY Supplement 12/19/23 10/02/24 History
insulin degludec 100 unit/mL (3 40 unit SC HS Diabetes 12/19/23 10/02/24 History
mL) subcutaneous pen (Tresiba
FlexTouch U-100 insulin)
metoprolol tartrate 50 mg tablet 50 mg PO TID Blood Pressure 12/19/23 10/02/24 History
midodrine 10 mg tablet 20 mg PO TID PRN Hypotension 12/19/23 10/02/24 History
sucroferric oxyhydroxide 500 mg 1,000 mg PO BID Supplement 12/19/23 10/02/24 History
chewable tablet (Velphoro)
tamsulosin 0.4 mg capsule 0.4 mg PO HS Urinary Issue 12/19/23 10/02/24 History
tramadol 50 mg tablet 50 mg PO Q6H PRN moderate/severe 12/19/23 10/02/24 History
insulin aspart U-100 100 unit/mL 18 unit SC MEALS 09/25/24 10/02/24 History
subcutaneous solution (Novolog
U-100 Insulin aspart)
Review of Systems
-
History Source: Patient
All other systems: Negative unless noted
Physical Exam
Vital Signs
Vital Signs
Temp Pulse Resp BP Pulse Ox
98.9 F 69 17 118/66 92
10/02/24 17:05 10/02/24 17:30 10/02/24 17:30 10/02/24 17:30 10/02/24 17:35
Physical Exam
General: AOx3, Nontoxic , postoperative lethargy
HEENT: PERRL, EOMI, Anicteric, Conjunctivae Clear, Ear/Nose Intact, Hearing Normal, Oropharynx Clear/Moist, Dentition Intact, Facial Symmetry, Neck Supple, Neck: Trachea Midline, No JVD and No Thyromegaly, no Bruits
Respiratory: Clear to auscultation bilaterally with normal lung excursion
Cardiac: S1/S2 and Regular Rate/Rhythm with 4/6 SAUL
Breast: Deferred by me
Abdomen: Tender decreased bowel sounds no hepatosplenic
Rectal: Deferred by Provider
Genito-urinary: No Costovertebral Tenderness
Extremities: No Clubbing, No Cyanosis and No Edema
Skin: No Rash or open lesions
Neuro: Nonfocal/Grossly Intact, CN II-XII (Intact) and Strength (Musculoskeletal exam 5 out of 5 both upper and lower extremities)
Hematologic/Lymphatic: No Cervical Lymphadenopathy, No Submandibular Lymphadenopathy and No Supraclavicular Lymphadenopathy
Psych: Mood/afflect pleasant, Insight/judgement good and Appropriate
Vascular: plus 1 pedal and radial pulses
Vascular Access: AVF (Left upper extremity AV fistula with good thrill and bruit)
Data Reviewed
-
Labs: Labs Reviewed by me (To be obtained and reviewed by me which include CBC and BMP)
Assessment/Plan
-
Assessment:
ESRD Tuesday
Status post peristomal hernia repair on 10/02/2024
s/p open repair of incarcerated parastomal hernia 12/19
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 follows urologist
Diabetes Mellitus, Type II
Paroxysmal Atrial Fibrillation
Essential Hypertension now hypotensive on dialysis requiring midodrine
BPH
Hyperphosphatemia
Anemia
Plan
Dialysis to be provided tomorrow orders provided
Maintain fluid restriction 1500 cc daily once p.o.
Appropriate dietary guidelines including less than 2 g sodium and potassium diet once p.o.
Midodrine as needed for hypotension
Maintain Velphoro once diet advanced for hyperphosphatemia
JAYNE as needed for anemia of ESRD
[2024-10-02] MEDS: SUBLIMAZE 25 MCG IV (18:02)
--- NOTE | 2024-10-02 20:20 | PTCARENOTE ---
Pt arrived to 2S from PACU @ 2019. Pt AAOx3. VSS. Admission assessment complete. IVF initiated per order. R ileostomy in place. Appliance c/d/i. L AVF +bruit +thrill. Plan for HD tomorrow. Pt oriented to call boone and room, call boone within reach,
bed locked in lowest position. Pt educated on plan of care. Care ongoing.
[2024-10-02] MEDS: NSS 1000 IV (20:43)
[2024-10-02] MEDS: ZYLOPRIM 100 MG PO (20:45)
[2024-10-02] MEDS: HEPARIN 5000 UNITS SC (20:45)
[2024-10-02] MEDS: LOPRESSOR 50 MG PO (21:05)
[2024-10-02] MEDS: FLOMAX 0.4 MG PO (21:05)
[2024-10-02 21:06] LABS: Glucose - Point of Care 153 mg/dl (70-99)
[2024-10-02 21:45] LABS: Glucose - Point of Care 137 mg/dl (70-99)
[2024-10-03] MEDS: TYLENOL 1000 MG PO (05:27)
[2024-10-03 06:00] VITALS: BMI 34.3
[2024-10-03 06:54] LABS: Hematocrit 33.1 % (39.0-52.0); Hemoglobin 10.8 g/dL (13.0-18.0); Mean Corp Hgb Conc. 32.6 g/dL (33.0-37.0); Mean Corpuscular Volume 98.5 fL (80.0-94.0); Platelet Count 196 10^3/uL (130-400); Red Cell Dist. Width 14.6 % (11.5-14.5)
--- NOTE | 2024-10-03 07:03 | W.PN.GS2 ---
Today's Communication / Plan
-
`
Assessment / Plan
-
Assessment: 84 y/o male POD#1 s/p RAL parastomal hernia repair with mesh; sugarbaker technique
h/o ESRD on DH (-W-)
P-Afib h/o CHF with normal EF
IDDM
chronic anemia
AFVSS
expected location and severity of post op pain, awaiting signs of post op GI function
AM labs pending
Plan: multimodal pain control options
OOBTC today, okay to ambulate as well
nephrology assistance with post op care appreciated - HD today
full liquid diet for comfort but monitor for return of ostomy function post op
home BP meds
SSI with accu checks until on regular diet then resume home insulin coverage
heparin SQ/SCDS/ambulation for VTEp
Subjective Data
-
Date of Service: October 03, 2024
pt seen and examined
post op pain predominantly at hernia repair area
no nausea
ostomy without much function yet
no nausea
Objective Data
-
Intake and Output
10/02/24 10/03/24 10/04/24
06:59 06:59 06:59
Intake Total 960 / 960
Balance 960 / 960
Intake:
Oral fluids 960 / 960
Vital Signs
Temp Pulse Resp BP Pulse Ox
97.9 F 64 16 101/52 93
10/02/24 23:00 10/02/24 23:00 10/02/24 23:00 10/02/24 23:00 10/02/24 23:00
Lab Results
10/03/24 05:52
Physical Exam
-
NAD AAOx3
ABD: softly distended, TTP localizing to right abdominal wall
robo sites with glue dressings
ileostomy with pink mucosa, no air/stool in appliance
[2024-10-03 07:10] VITALS: BP 97/48
[2024-10-03 07:31] LABS: Blood Urea Nitrogen 44 mg/dl (9-20); Calcium 7.9 mg/dl (8.4-10.2); Carbon Dioxide 22 mmol/L (22-30); Chloride 100 mmol/L (98-107); Estimated Creatinine Clearance 8 ml/min; Glucose 117 mg/dl (70-99); Sodium 132 mmol/L (135-145); eGFR 5.98
[2024-10-03 07:46] LABS: Potassium 7.3 mmol/L (3.5-5.1)
[2024-10-03 08:12] LABS: Glucose - Point of Care 99 mg/dl (70-99)
[2024-10-03] MEDS: ULTRAM 50 MG PO ×3 (08:46→22:28)
[2024-10-03] MEDS: LOPRESSOR PO ×4 (08:47→21:55)
[2024-10-03] MEDS: HEPARIN 5000 UNITS SC ×2 (08:49→19:20)
[2024-10-03] MEDS: PACERONE 200 MG PO (08:49)
[2024-10-03] MEDS: NOVOLIN R 0.1 UNITS IV (09:10)
[2024-10-03] MEDS: DEXTROSE 50% SYRINGE 25 GRAMS IV (09:14)
[2024-10-03 09:19] LABS: Glucose - Point of Care 172 mg/dl (70-99)
[2024-10-03 10:15] LABS: Glucose - Point of Care 203 mg/dl (70-99)
[2024-10-03 11:05] VITALS: BP 99/51
[2024-10-03 11:15] LABS: Glucose - Point of Care 166 mg/dl (70-99)
[2024-10-03 11:37] LABS: Potassium 5.7 mmol/L (3.5-5.1)
[2024-10-03] MEDS: MANNITOL 25% 12.5 GRAMS IV ×2 (12:34→13:36)
[2024-10-03 13:26] LABS: Glucose - Point of Care 101 mg/dl (70-99)
[2024-10-03 15:38] VITALS: BP 102/54
--- NOTE | 2024-10-03 16:07 | W.PN.NEPH.HD ---
Assessment
-
pt seen during HD
BP are soft, s/p midodrine
below EDW hence no UF done
monitor on liquid diet
low k diet reviewed, reports no issues in out pt
AVF functions well
will add heparin in next HD as he seem to clot on machine
Progress Note - Hemodialysis
-
Date of Service: October 03, 2024
Duration: 30 minutes and 3 hours
Potassium Bath: 2
Calcium Bath: 2.5
Opti-Dialyzer: 160
Ultrafiltration: Other (0)
Blood Flow: 400
Dialysate Flow: 600
Heparin: no
EPO: no
--- NOTE | 2024-10-03 16:29 | CM ---
Patient seen at bedside with Vero
HD today
States he drives to dialysis M-W-F at [facility] 11:30am chair time

Lives with in a 2 story home, [address], 13 steps to bedroom, 1st floor full bathroom
PLOF: Independent, drives
DME: cane, walker in home
Denies insecurities
PCP: Ernesto Infante
Pharmacy: [facility], [address]
PLAN: home, no needs anticipated
[2024-10-03 16:59] LABS: Glucose - Point of Care 100 mg/dl (70-99)
[2024-10-03] MEDS: ZYLOPRIM PO (17:03)
[2024-10-03 19:05] VITALS: BP 103/51
[2024-10-03] MEDS: ZYLOPRIM 100 MG PO (19:20)
[2024-10-03 21:04] LABS: Glucose - Point of Care 117 mg/dl (70-99)
[2024-10-03] MEDS: FLOMAX 0.4 MG PO (21:19)
[2024-10-03 23:04] VITALS: BP 107/54
--- NOTE | 2024-10-04 05:22 | PTCARENOTE ---
Pt refused lleostomy to be drained @ 523, he states will like his doctor to see color etc. Small amount of stool in bag
[2024-10-04 06:00] VITALS: BMI 34.6
[2024-10-04] MEDS: ULTRAM 50 MG PO (06:23)
[2024-10-04 07:10] VITALS: BP 103/51
[2024-10-04 07:22] LABS: Glucose - Point of Care 112 mg/dl (70-99)
[2024-10-04] MEDS: TYLENOL 1000 MG PO (07:58)
[2024-10-04] MEDS: ZYLOPRIM 100 MG PO (07:59)
[2024-10-04] MEDS: PACERONE 200 MG PO (07:59)
[2024-10-04] MEDS: LOPRESSOR 50 MG PO (08:00)
[2024-10-04] MEDS: HEPARIN 5000 UNITS SC (08:01)
[2024-10-04 08:03] LABS: Blood Urea Nitrogen 26 mg/dl (9-20); Calcium 7.7 mg/dl (8.4-10.2); Carbon Dioxide 33 mmol/L (22-30); Chloride 94 mmol/L (98-107); Estimated Creatinine Clearance 11 ml/min; Glucose 110 mg/dl (70-99); Potassium 5.1 mmol/L (3.5-5.1); Sodium 133 mmol/L (135-145); eGFR 8.70
--- NOTE | 2024-10-04 09:46 | W.PN.GS2 ---
Addendum entered and electronically signed by Liam Maravilla MD 10/04/24 11:14:
I was physically present and personally performed the olivo portions of the surgical evaluation and/or procedure with the resident. I discussed the findings, reviewed the resident�s note, and confirmed the medical decision-making. I provided direct
supervision as required and agree with the assessment and plan as documented with the following additions/corrections:
Patient reports adequate pain control of postoperative right-sided abdominal wall pain localized to the region of his herniorrhaphy. He underwent hemodialysis yesterday. Overall otherwise feeling well with the start of returning GI function from
his ostomy.
AFVSS
NAD AAO x 3, resting comfortably in his hospital bed
ABD: Soft, nondistended, right-sided ileostomy with pink mucosa healthy and viable. Liquid/soft stool and gas in ostomy appliance. Some soft tissue swelling but no significant seroma or hematoma in the region of herniorrhaphy. Robotic surgical
sites with glue dressings and nontender.
Assessment/plan: POD #1 status post RAL parastomal hernia pair with mesh
Doing well postop
Up out of bed to chair today and ambulate
Regular diet -ADA and sodium/potassium and fluid restriction
If pain controlled and tolerates p.o. intake patient stable for discharge home today
Therapeutic anticoagulation should be held for a full 72 hours postoperatively
Prescription provided for tramadol and counseled patient that in the setting of end-stage renal disease 100 mg of tramadol should not be used as he has been doing at home. He states that he will stick with the 50 mg going forward and Tylenol.
Original Note:
Today's Communication / Plan
-
advanced to diabetic diet.
depends on pt tolerability planning to discharge the patient
follow up in OP surgery clinic in a few weeks in future.
Assessment / Plan
-
Assessment: 84 y/o male POD#2 s/p RAL parastomal hernia repair with mesh; sugarbaker technique with k/h/o ESRD on DH (M-W-F), Paroxysmal AFib with Normal EF, IDDM, Chronic anemia, gout
AFVSS
WBC = 6.8-->12.7 (h) on 10/03 probably due to procedure induced high WBC count.
Currently pt is on Tylenol 1000mg, tramadol 50 mg for the pain control after discussing with dormitory keeper regarding CKD Stage 5 currently receiving hemodialysis.
patient is ambulate as well.
full liquid diet currently, advance to diabetic diet depends on pt tolerability for today lunch.
home BP medication includes metoprolol 50 mg
SSI with accu checks until on regular diet then resume home insulin coverage.
DVT prophylaxis: Heparin SC/SCDS/ ambulation.
Subjective Data
-
Date of Service: October 04, 2024
Overnight pt has a concern for pain (on a scale of 3/10) around right side ostomy tube. He is feeling better comparing from yesterday. flatus and stools presented at ostomy. No concern for nausea, vomiting, fever, chills and currently pt is walking
around the room.
Objective Data
-
Intake and Output
10/03/24 10/04/24 10/05/24
06:59 06:59 06:59
Intake Total 960 / 960 660 / 660
Balance 960 / 960 660 / 660
Intake:
Oral fluids 960 / 960 660 / 660
Vital Signs
Temp Pulse Resp BP Pulse Ox
98.7 F 84 17 127/89 93
10/04/24 07:10 10/04/24 08:00 10/04/24 07:10 10/04/24 08:00 10/04/24 07:10
Lab Results
10/03/24 05:52
10/04/24 07:13
Calcium 7.7 mg/dl (8.4-10.2) L 10/04/24 07:13
Physical Exam
-
NAD AAOx3
General: AOx3, Nontoxic ,
HEENT: PERRL, EOMI, Anicteric, Conjunctivae Clear, Ear/Nose Intact, Hearing Normal, Oropharynx Clear/Moist, Dentition Intact, Facial Symmetry, Neck Supple, Neck: Trachea Midline, No JVD and No Thyromegaly, no Bruits
Respiratory: Clear to auscultation bilaterally with normal lung excursion
Cardiac: S1/S2 and Regular Rate/Rhythm with 4/6 SAUL
Abdomen: soft, non-distended, (mild tenderness present around ostomy tube. robo sites with glue dressings, ileostomy with pink mucosa, air/stool present in appliance.)
Genito-urinary: No Costovertebral Tenderness
Extremities: No Clubbing, No Cyanosis and No Edema
Skin: No Rash or open lesions
Neuro: Nonfocal/Grossly Intact, CN II-XII (Intact) and Strength (Musculoskeletal exam 5 out of 5 both upper and lower extremities)
Psych: Mood/afflect pleasant, Insight/judgement good and Appropriate
Vascular: plus 1 pedal and radial pulses
Patient has a mijares catheter: No
Patient has a central line: No
[2024-10-04 12:14] LABS: Glucose - Point of Care 127 mg/dl (70-99)
--- NOTE | 2024-10-04 13:14 | W.DS.TRANS ---
DC Summary - [employer] Radiant Analyst
-
Discharge Instructions:
Sleep Apnea Risk Low
Discharge Diagnosis/Procedures Parastomal hernia. Robotic assisted
laparoscopic repair parastomal hernia with mesh
Diet As tolerated,2 Gram Sodium,Diabetic, Carb
Controlled
Activity No strenuous activity
Additional Activity No lifting over 20 pounds for 6 weeks
postoperatively
Driving Restrictions No driving for 2 to 3 days or if using narcotics
Bathing Restrictions OK to Shower
Wound Care Glue at surgical site typically peels off in 2
to 3 weeks
Instructions:
Stand-Alone Forms:
Changes to Home Medications: No
Discharge Medications:
DC Medications w/original date entered in [facility]
acetaminophen 500 mg tablet 1,000 mg PO Q6H PRN mild pain/fever 12/19/23
allopurinol 100 mg tablet 100 mg PO BID Gout 12/19/23
amiodarone 200 mg tablet 200 mg PO DAILY AFIB 12/19/23
apixaban 2.5 mg tablet (Eliquis) 2.5 mg PO BID Blood Clot Prevention/Tx 12/19/23
Held on 10/04/24. Instructions: Resume on 10/05/24. may resume 72hrs after surgery; Tuesday evening 10/05/24
cholecalciferol (vitamin D3) 50 mcg (2,000 unit) capsule (Vitamin D3) 50 mcg PO DAILY Supplement 12/19/23
coenzyme Q10 100 mg capsule 100 mg PO DAILY Supplement 12/19/23
insulin degludec 100 unit/mL (3 mL) subcutaneous pen (Tresiba FlexTouch U-100 insulin) 40 unit SC HS Diabetes 12/19/23
metoprolol tartrate 50 mg tablet 50 mg PO TID Blood Pressure 12/19/23
midodrine 10 mg tablet 20 mg PO TID PRN Hypotension 12/19/23
sucroferric oxyhydroxide 500 mg chewable tablet (Velphoro) 1,000 mg PO BID Supplement 12/19/23
tamsulosin 0.4 mg capsule 0.4 mg PO HS Urinary Issue 12/19/23
insulin aspart U-100 100 unit/mL subcutaneous solution (Novolog U-100 Insulin aspart) 18 unit SC MEALS 09/25/24
tramadol 50 mg tablet 50 mg PO Q6H PRN moderate/severe #20 tabs 10/04/24
Home Medication Changes
DO NOT RESUME APIXABAN UNTIL 72hrs after surgery; Tuesday evening 10/05/24
Pending Results: No
--- NOTE | 2024-10-04 13:15 | W.DCSUMMARY ---
Discharge Summary
Discharge Data
Date of Admission: 10/02/24
Date of Discharge: 10/04/24
-
Pending Results: No
Hospital Course
Patient is an 84-year-old male known to our general surgery service secondary to a recurrent parastomal hernia. After recent event of temporary incarceration with obstruction he presents today for scheduled operative correction. Anticipated
operative procedure was fully reviewed in detail with the patient obtaining written informed consent
Intraoperative findings confirmed a moderate-sized parastomal hernia at his permanent end ileostomy. There were no significant intra-abdominal adhesions or additional incidental findings. A robotic assisted laparoscopic parastomal hernia repair
with mesh was completed which the patient tolerated well. His postoperative course was generally unremarkable. He has a history of end-stage renal disease and is on hemodialysis. The morning of postoperative day 1 his laboratory testing was
notable for significant hyperkalemia. Nephrology had been consulted and assisted with management treating acutely with insulin and D5. He then had hemodialysis with normalization of his potassium.
On postoperative day 2 patient's ileostomy was functioning well. He was advanced to a diabetic/renal diet which he tolerated for lunch. Postoperative pain was adequately controlled and he was ambulating. The patient was deemed stable for
discharge with outpatient surgical follow-up. He was continued on all of his regular preoperative medications however he was advised to hold Eliquis for a full 72 hours postoperatively which would be until 10/05/2024.
Discharge Plan
-
Patient Disposition: Home (Routine Discharge)
Discharge Diagnosis/Procedures: Parastomal hernia. Robotic assisted laparoscopic repair parastomal hernia with mesh
Condition: Good
Diet: As tolerated, 2 Gram Sodium and Diabetic, Carb Controlled
Activity: No strenuous activity
Additional Activity: No lifting over 20 pounds for 6 weeks postoperatively
Driving Restrictions: No driving for 2 to 3 days or if using narcotics
Bathing Restrictions: OK to Shower
Wound Care: Glue at surgical site typically peels off in 2 to 3 weeks
Activity Restrictions/Additional Instructions:
�Liam Maravilla MD [facility] General Surgery
[address], [address]
[place] [address]
office - [phone]
Post-Operative Instructions for Robotic Hernia Surgery
The incision sites are sealed with a surgical glue dressing.� It is safe to shower at any time after surgery when the glue is dry.� Let shower water run over the incisions and then pat dry, no topicals or additional dressings are needed.
Glue dressing typically peels off in 2-3 weeks.
Regular as tolerated but recommended Smaller portions for meals as bloating and distention are common post op for the first few days (2-5 days) until bowels are moving again.
Resume all preoperative medications directed in discharge medication list
Do not drive or drink alcohol for 24hrs after having anesthesia or while taking narcotic pain medications.
May resume regular daily light activities, such as walking and going up/down stairs as tolerated within 24hrs of surgery.� However, please refrain from lifting over 20lbs or strenuous exercise for approximately 6 weeks or as advised at
postoperative follow up.�
Abdominal wall pain/discomfort, bloating, mild nausea, as well as bruising/stiffness or swelling at the incision sites and hernia repair region are common after surgery, if felt to be excessive please notify us.
Please call the office to schedule your postoperative follow-up office visit if not arranged prior to surgery.
Call the office with a fever above 101� F, nausea with vomiting, severe abdominal pain, spreading redness and drainage from incision sites or any concerns/questions.
Referrals:
Ernesto Infante MD [Family Provider]
Liam Maravilla MD [Active, Surgical] - in two to three weeks
Prescriptions:
Continued
amiodarone 200 mg Tablet
200 mg PO DAILY
allopurinol 100 mg Tablet
100 mg PO BID
acetaminophen 500 mg Tablet
1,000 mg PO Q6H PRN (Reason: mild pain/fever)
tamsulosin 0.4 mg Capsule
0.4 mg PO HS
metoprolol tartrate 50 mg Tablet
50 mg PO TID
midodrine 10 mg Tablet
20 mg PO TID PRN (Reason: Hypotension)
coenzyme Q10 100 mg Capsule
100 mg PO DAILY
cholecalciferol (vitamin D3) [Vitamin D3] 50 mcg (2,000 unit) Capsule
50 mcg PO DAILY
insulin degludec [Tresiba FlexTouch U-100] 100 unit/mL (3 mL) Insulin Pen
40 unit SC HS
Velphoro 500 mg Tablet,Chewable
1,000 mg PO BID
insulin aspart U-100 [Novolog U-100 Insulin aspart] 100 unit/mL Solution
18 unit SC MEALS
tramadol 50 mg Tablet
50 mg PO Q6H PRN (Reason: moderate/severe) Qty: 20 0RF
Held
Eliquis 2.5 mg Tablet
2.5 mg PO BID
Hold Instructions: Resume on 10/05/24. may resume 72hrs after surgery; Tuesday evening 10/05/24
Discharge Orders:
Discharge Patient (As Directed); Ordered 10/04/24
Ordered By: Liam Maravilla
Discharge Date and Time
Print Language: FRISIAN
--- NOTE | 2024-10-04 13:37 | CM ---
Met with patient at bedside; he reported that will provide transport home
IMM benefit explained; form signed @ 1320
Plan: Discharge to home today; to continue with Outpatient HD therapy
--- NOTE | 2024-10-04 14:30 | W.PN.NEPH.PH ---
Today's Communication / Plan
-
ok to d/c
Assessment/Plan
-
Assessment:
ESRD Tuesday
Status post peristomal hernia repair on 10/02/2024
s/p open repair of incarcerated parastomal hernia 12/19
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 follows urologist
Diabetes Mellitus, Type II
Paroxysmal Atrial Fibrillation
Essential Hypertension now hypotensive on dialysis requiring midodrine
BPH
Hyperphosphatemia
Anemia
Plan
tolerating diet
hyperkalemia resolved
HD tomorrow at his unit if d/c today
Midodrine as needed for hypotension
Maintain Velphoro for hyperphosphatemia
renal diet and FR
-
-
Date of Service: October 04, 2024
CC / HPI / ROS
-
Chief Complaint:
ESRD
History of Present Illness:
tolerated HD yesterday
BP stable
tolerating diet
Review of Systems:
no cp or sob
Labs
-
Labs:
WBC 12.7 10^3/uL (4.8-10.8) H 10/03/24 05:52
RBC 3.36 10^6/uL (4.70-6.10) L 10/03/24 05:52
Hgb 10.8 g/dL (13.0-18.0) L 10/03/24 05:52
Hct 33.1 % (39.0-52.0) L 10/03/24 05:52
Plt Count 196 10^3/uL (130-400) 10/03/24 05:52
Sodium 133 mmol/L (135-145) L 10/04/24 07:13
Potassium 5.1 mmol/L (3.5-5.1) 10/04/24 07:13
Chloride 94 mmol/L (98-107) L 10/04/24 07:13
Carbon Dioxide 33 mmol/L (22-30) H 10/04/24 07:13
BUN 26 mg/dl (9-20) H 10/04/24 07:13
Creatinine 6.0 mg/dL (0.7-1.3) H* 10/04/24 07:13
eGFR 8.70 10/04/24 07:13
Glucose 110 mg/dl (70-99) H 10/04/24 07:13
Calcium 7.7 mg/dl (8.4-10.2) L 10/04/24 07:13
Physical Exam
-
Vital Signs:
Vital Signs
Temp Pulse Resp BP Pulse Ox
98.7 F 84 17 127/89 93
10/04/24 07:10 10/04/24 08:00 10/04/24 07:10 10/04/24 08:00 10/04/24 11:04
Cardiovascular:: Regular rate and rhythm
Respiratory:: Bilateral: CTA
Lung Excursion:: Normal
Abdomen:: Nontender and Soft
Bowel Sounds:: Normal
Extremity Edema:: None: Bilateral:
Shaw Catheter: No
[2024-10-04 15:09] VITALS: BP 118/53
== END 2024-10-04 15:45 | disposition home or self-care (01) | DRG 353 ==
LOC: 2 SOUTH 11:22
PROVIDERS: Internal Medicine; Nurse Practitioner Gerontology; ADMITTING PHYSICIAN Surgery; CONSULT PHYSICIAN Specialist; FAMILY PHYSICIAN Internal Medicine Infectious Disease
PROC: 8E0W4CZ Robotic Assisted Procedure of Trunk Region, Percutaneous Endoscopic Approach (ICD-10-PCS; 2024-10-02)
PROC: 0WUF4JZ Supplement Abdominal Wall with Synthetic Substitute, Percutaneous Endoscopic Approach (ICD-10-PCS; 2024-10-02)
PROC: 5A1D70Z Performance of Urinary Filtration, Intermittent, Less than 6 Hours Per Day (ICD-10-PCS; 2024-10-03)
DX: K43.5 Parastomal hernia without obstruction or gangrene (principal); N18.6 End stage renal disease; I13.2 Hypertensive heart and chronic kidney disease with heart failure and with stage 5 chronic kidney disease, or end stage renal disease; I50.32 Chronic diastolic (congestive) heart failure; K51.90 Ulcerative colitis, unspecified, without complications; D63.1 Anemia in chronic kidney disease; I48.0 Paroxysmal atrial fibrillation; I95.3 Hypotension of hemodialysis; E11.22 Type 2 diabetes mellitus with diabetic chronic kidney disease; E83.39 Other disorders of phosphorus metabolism; I06.0 Rheumatic aortic stenosis; M10.9 Gout, unspecified; N40.0 Benign prostatic hyperplasia without lower urinary tract symptoms; E87.5 Hyperkalemia; Z99.2 Dependence on renal dialysis; Z79.899 Other long term (current) drug therapy; Z79.01 Long term (current) use of anticoagulants; Z93.2 Ileostomy status
CPT/HCPCS: 80048; 82962; 84132; 85027; 87070; C1781; G0257; J1335